=== PATIENT | male | born 1935 | race Caucasian/White ===

== ENCOUNTER 2017-01-10 14:00 | Inpatient (IN) | payer MEDICARE, OTHER ==
[~2017-01-10] VITALS: Ht 152.4 cm; Wt 75.3 kg
--- NOTE | ~2017-01-10 | OR ---
PATIENT'S NAME: EDDY HOOKS [facility] AGE: 81 Y [address] ROOM: [address] [address] LOCATION: GICU ADMIT DATE: 01/10/2017 OR/Procedure Report DISCHARGE DATE: FAMILY PHYSICIAN: SUZY DE SANTIAGO PA-C ATTENDING PHYSICIAN: Joey Lopes SURGEON: Shay Mendoza MD SPIKE MACHINE OPERATOR: DATE OF PROCEDURE: 01/13/2017 PREOPERATIVE DIAGNOSIS: High-grade right internal carotid artery stenosis as well as 3-vessel disease of the heart. PROCEDURE: Combined carotid/CABG. I will be dictating the portion of the carotid surgery. CLAIMS ACCOUNT MANAGER: Doris Alvarez. ESTIMATED BLOOD LOSS: 100 mL. FINDINGS: Flow in all 3 vessels at the end of the case. DESCRIPTION OF PROCEDURE: The patient was brought to the operating room, placed supine on the operating table, placed under general anesthesia, prepped and draped in a sterile manner. Preoperative time-out was performed. The patient had placement of a [place] catheter in the left IJ as well as arterial line in the left wrist. Preop time-out was performed. We made a standard incision along the anterior border of sternocleidomastoid on the right, dissected down, transected the platysma. We dissected out the soft tissue on the anterior border of the sternocleidomastoid muscle. We identified the facial vein, which was ligated and transected. We then dissected out the external, common, internal, and superior thyroid artery. We then gave 5000 units of heparin. We then clamped on all 3 major vessels, placed a clip on the superior thyroid, which was removed at the end of the case. We made an arteriotomy with 11 blade from the common to the internal. We then passed a 5 x 3 Sundt shunt from the common to the internal. Flow was confirmed with the use of Doppler. We then performed a standard endarterectomy, removing the plaque in its entirety. We then meticulously examined the posterior wall of the artery, removing any further debris. We then did a standard 6-0 [place] patch anastomosis using a bovine pericardial patch. Before completing the anastomosis, we clamped and removed the shunt. We allowed for backbleeding from the internal as well as forward bleeding from the common. We completed anastomosis. We then removed the clamp from the external as well as the clamp from the common. We waited 10 heartbeats and then removed the clamp from the internal. Any bleeding areas were repaired PATIENT'S NAME: EDDY HOOKS [facility] AGE: 81 Y [address] ROOM: [place] [address] LOCATION: [facility] ADMIT DATE: 01/10/2017 OR/Procedure Report DISCHARGE DATE: FAMILY PHYSICIAN: SUZY DE SANTIAGO PA-C ATTENDING PHYSICIAN: Joey Lopes with 6-0 Prolene. The wound was then packed with thrombin for hemostasis. The wound was then packed with 2 Ray-Tecs and then covered with a clear sterile dressing. Dr. Appiah at this time entered the case and would continue with the CABG, which he will dictate his portion of the case. MD BROOKLYN WEBBER/rosa isela /[id number] d: 01/13/171952 t: 01/17/17 1145, OPERATIVE SUMMARY
--- NOTE | ~2017-01-10 | PUL ---
PATIENT'S NAME: EDDY HOOKS [facility] AGE: 81 Y [address] ROOM: [address] [place], [place] [address] LOCATION: GPCU ADMIT DATE: 01/10/2017 Pulmonary DISCHARGE DATE: FAMILY PHYSICIAN: SUZY DE SANTIAGO PA-C ATTENDING PHYSICIAN: Joey Lopes NAME OF PROCEDURE: Bedside Spirometry DATE OF PROCEDURE: January 11, 2017 TECH: TBlan, DRAW FRAME RUNNER REASON FOR EXAM: Pre-surgical evaluation RESULTS: FVC was 1.34 liters which is 35% of predicted, FEV1 was 0.96 liters which is 35% of predicted and low, and FEV1/FVC was 71.4% and normal. The flow volume curve did not reveal any significant airflow limitation. However, there was suggestion of restrictive lung disease. PHYSICIAN INTERPRETATION: The patient has no airflow limitation. There is suggestion of restrictive lung disease but lung volumes are needed to confirm that. MD JASON DUQUE/barbie /[id number] dtt: 01/12/17 1322 , LINDSAY HERNANDEZ dtd: 01/12/17 1242
--- NOTE | ~2017-01-10 | CATH ---
Cardiac Diagnostic Report Demographics Patient Name JESSEE Ansari Gender Male Date of 1935 Age 81 year(s) Patient Number [id number] Date of Study 01/11/2017 Visit Number [id number] Room Number G[address] [place] [id number] Ht 175.26 cm Wt 73.94 kg Referring Tory Pratt Primary Physician Physician Performing Marianne Cook MD Secondary Physician Physician Diagnostic Marianne Cook MD Assisting Physician Physician Interventional Physician Crop Pest Control Specialist Physician Findings and Conclusions Diagnostic Findings and Conclusion 3 vessel CAD 1/5 grafts patent Diagnostic Recommendations CT consult for re-do CABG Procedure Description The patient was brought to the diagnostic cardiac catheterization-EP laboratory in the fasting, non-sedated state. Informed consent was obtained in the written and verbal form after the risks and benefits were explained. The patient had no further questions and agreed to proceed. The planned puncture-incision site(s) were shaved and prepped with ChloraPrep and draped in the usual sterile manner. Conscious sedation, supplemental oxygen, and pain control medications were delivered by a registered nurse under physician guidance. Surface ECG rhythm, blood pressure measurement, and pulse oximetry were monitored throughout the procedure. Arterial access. The access site was infiltrated with lidocaine. The vessel was entered with the Seldinger technique. A sheath was advanced into the vessel and used for catheter placement. Selective left coronary angiography. A catheter was advanced into the left coronary vessel ostium under Fluoroscopic guidance. Contrast was injected by hand. Images were obtained in multiple projections. Selective right coronary angiography. A catheter was advanced into the right coronary vessel ostium under fluoroscopic guidance. Contrast was injected by hand. Images were obtained in multiple projections. Selective SVG angiography. A catheter was advanced into the graft proximal anastomosis under fluoroscopic guidance. Contrast was injected by hand. Images were obtained in multiple projections. Left heart catheterization with ventriculography. A catheter was advanced across the aortic valve to the left ventricle under fluoroscopic guidance. Resting hemodynamics were obtained. With the catheter at the left ventricular apex, contrast was injected. Images were obtained in VINICIUS projections. Post-ventriculography LV pressure was obtained. The catheter was gradually withdrawn into the aorta with continuous pressure recording. Arterial artery hemostasis. Hemostasis was achieved. The patient was transferred to a regular nursing floor via cart accompanied by a nurse. The patient left the laboratory in stable condition. Diagnostic Cath Status: Urgent Procedure Procedure Type Diagnostic procedure:Ventriculogram:, Left, Angiography:, Coronary Angios Indications: NSTEMI, Shortness of breath and Angina. The procedure was explained in detail to the patient. Risks, complications and alternative treatments were reviewed. Written consent was obtained. Medications Reviewed with Patient prior to Procedure. Angiographic Findings Dominance: Right Cardiac Arteries and Lesion Findings LMCA: Abnormal.calcified large wnl LAD: Abnormal.mid 85% involving medium diag 1 diag 1 medium competitive flow MCINTOSH-LAD 100% occluded svg-diaf 1 patent, timbi-[place] diag medium ok Lesion on Mid LAD: Mid subsection.85% stenosis . LCx: Abnormal.nondominant diffuse 80% lesions Lesion on Mid CX: Mid subsection.80% stenosis . RCA: Abnormal.heavily calcified mid 75% distal 99% PL mid distal/distal 100% PDA small ok Lesion on Mid RCA: Mid subsection.85% stenosis . Lesion on 1st RPL: Distal subsection.100% stenosis . Lesion on Dist RCA: Distal subsection.100% stenosis . Lesion on 1st RPL: Cardiac Grafts - There is a Vein graft that originates at the Aorta Left and attaches to the 1st Diag. Coronary Tree Procedure Data Procedure Date Date: 01/11/2017Start: 11:20 AMEnd: 11:57 AM Entry Locations - Retrograde Percutaneous access was performed through the Right Femoral artery (Primary location). A 6 Fr sheath was inserted. Hemostasis was successfully obtained using Perclose ProGlide (S[place]). Closure Comments: deployed by kate. Procedure Medications Order and Administration + + + + + !Time !Medication !Dosage !Route ! + + + + + !01/11/2017 11:17 AM !Fentanyl !50 mcg !I.V. ! + + + + + !01/11/2017 11:19 AM !Versed !1 mg !I.V. ! + + + + + !01/11/2017 11:24 AM !Oxygen !4 l/min !NC ! + + + + + !01/11/2017 11:27 AM !Oxygen !6 l/min !Mask ! + + + + + !01/11/2017 11:53 AM !0.45% NaCl !75 ml/hr !I.V. drip ! + + + + + Devices Used - A6 Fr. BS JL 4 Diag. Catheterwas used for:Left coronary angiography. - A6 Fr. BS JR 4 Diag. Catheterwas used for:Right coronary angiography. - A6 Fr. BS IMT Diag. Catheterwas used for:MCINTOSH. - A6 Fr. BS AR Mod Diag. Catheterwas used for:Coronary Angios. - A6 Fr. BS Angled Pigtail Diag. Catheterwas used for:LV Pressures. Contrast Material - Isovue 106424 ml Fluoroscopy Time: Diagnostic: 8:00 minutes. Total: 8:00 minutes. Fluoroscopy Dose: Diagnostic: 1214 mGy. Total: 1214 mGy. Estimated Blood Loss: 3 ml. Medical History Allergies - No known allergies. Risk Factors The patient risk factors include: prior CABG on 11/14/1996;obesity, physical activity, treated hypercholesterolemia, treated hypertension, diabetes mellitus, last creatinine: 1.1 mg/dl, creatinine clearance: 56.01 ml/min, dyslipidemia and prior ID . Admission Data Admission Date: 01/10/2017 Admission Time: 02:28 PM Admit Source: Transfer acute care facility Insurance Payors: Medicare. Admission Medications + +------+------+ + + + + !Medication !Dosage!Times !Last !Last !Administered !Comments ! ! ! !Per !Delivery !Delivery ! ! ! ! ! !Day !Date !Time ! ! ! + +------+------+ + + + + !Aspirin ! ! ! ! ! ! ! !(any) ! ! ! ! ! ! ! + +------+------+ + + + + !Beta Fredis! ! ! ! ! ! ! !(any) ! ! ! ! ! ! ! + +------+------+ + + + + !LLUVIA ! ! ! ! ! ! ! !Inhibitor ! ! ! ! ! ! ! !(any) ! ! ! ! ! ! ! + +------+------+ + + + + !Statin (any)! ! ! ! ! ! ! + +------+------+ + + + + Clinical Evaluation Leading to Procedure - The patient's CAD presentation was assessed as: Non-STEMI. - The patient's anginal syndrome during the past two weeks was assessed as: Class IV according to the [place] Cardiovascular Society Classification System (CCS). Anti-anginal medications were prescribed during the past two weeks. The medications are: Beta Blockers and Other. VA Ventriculography Findings inferior wall mod-severe HK Ef40-45% LV function assessed as:Abnormal. Ejection Fraction - 01/11/2017 - Method: LV gram. EF%: 40. LVA Segment Contractility 1 - Normal 3 - Mild 5 - Severe 7 - Dyskinesis hypokinesis hypokinesis 2 - 4 - Moderate 6 - Akinesis 8 - Aneurysm Hypokinesis hypokinesis Hemodynamics Condition: Rest O2 Consumption: Estimated: 223.62Heart Rate: 81 bpm Pressures (mmHg) +-----+ + !Site !Pressure ! +-----+ + !AO !124/65 (88) ! +-----+ + !LV !117/8 ,19 ! +-----+ + !LV !118/6 ,21 ! +-----+ + !AO !119/60 (86) ! +-----+ + !LV !115/6 ,19 ! +-----+ + !LV !95/4 ,14 ! +-----+ + !LV !99/6 ,16 ! +-----+ + !AO !105/53 (76) ! +-----+ + !LV !100/6 ,16 ! +-----+ + Valve Gradients and Areas + +---------+---------+---------+ +---------+ + !Valve !Peak !Mean !Area !Index !Flow !Source ! + +---------+---------+---------+ +---------+ + !Aortic !0 !0 ! ! ! ! ! + +---------+---------+---------+ +---------+ + !Aortic !0 !0 ! ! ! ! ! + +---------+---------+---------+ +---------+ + Shunts Oxygen Values O2 Capacity 209.44 O2 Consumption 223.62 Signatures dtt: Joey Lopes (cardio) dtd: 01/11/17 1120 Physician Self Edit
--- NOTE | ~2017-01-10 | CON ---
PATIENT'S NAME: EDDY HOOKS [facility] AGE: 81 Y [address] ROOM: [place] [address] LOCATION: GICU ADMIT DATE: 01/10/2017 Consultation DISCHARGE DATE: FAMILY PHYSICIAN: SUZY DE SANTIAGO PA-C ATTENDING PHYSICIAN: Joey Lopes DATE OF CONSULTATION: 01/12/2017 REFERRING PHYSICIAN: Holger Appiah DO REASON FOR CONSULT: Right internal carotid artery high-grade stenosis. HISTORY OF PRESENTING ILLNESS: This is an 81-year-old male admitted to [facility] for a non-STEMI after experiencing left-sided chest pain and diminished appetite for 4 days. He presented to his primary care clinic and found to have an elevated troponin of 3.1. The patient was transferred to [facility], underwent cardiac heart catheterization with Dr. Lopes on January 11, 2017, and it was determined that the patient would need coronary artery bypass grafting. During the preoperative workup, carotid duplex revealed high- grade stenosis of the right internal carotid artery with velocities of 300/117. The patient denies any speech changes, vision changes, or changes in extremity strength. The patient has a known history of coronary artery disease with a 5-vessel CABG in 1996. He denies any history of nicotine use. The patient is a known type 2 diabetic. He denies any claudication or edema. He denies any chest pain, shortness of breath, dizziness, lightheadedness, nausea, vomiting, diarrhea, or abdominal pain at this time. PAST MEDICAL HISTORY: 1. Diabetes mellitus, type 2. 2. Coronary artery disease, postop coronary artery bypass grafting. 3. Hypertension. 4. Hyperlipidemia. 5. Elizabeth's lung. PAST SURGICAL HISTORY: 1. Appendectomy. 2. Cholecystectomy. 3. Coronary artery bypass grafting in 1996. 4. Right inguinal hernia repair. 5. Bilateral cataracts. 6. 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 FAMILY HISTORY: Father with Alzheimer's, and mother with hypertension. PATIENT'S NAME: EDDY HOOKS [facility] AGE: 81 Y [address] ROOM: [place] [address] LOCATION: GICU ADMIT DATE: 01/10/2017 Consultation DISCHARGE DATE: FAMILY PHYSICIAN: SUZY DE SANTIAGO PA-C ATTENDING PHYSICIAN: Joey Lopes SOCIAL HISTORY: The patient denies any history of smoking. He denies any alcohol or illicit drug use. CURRENT MEDICATIONS: See medication records. ALLERGIES: NO KNOWN ALLERGIES. REVIEW OF SYSTEMS: Ten-point review of systems completed, positives addressed in the History of Presenting Illness. PHYSICAL EXAMINATION: VITAL SIGNS: Temperature 98.3, heart rate 80, respiratory rate 18, blood pressure 135/78, and oxygen saturation is 93%. GENERAL: The patient is in no acute distress. He is alert and oriented x3. SKIN: Warm, pink, and dry without rashes. HEENT: Head: Normocephalic and atraumatic. Ears: Without drainage. Eyes: Sclerae are white and conjunctivae pink. Extraocular movements intact. PERRLA. Nose: Without drainage. Throat: Oral mucosa pink and moist. No exudate or erythema. NECK: Without adenopathy. No evidence of JVD. There is quiet carotid bruit to the right side. Trachea midline. RESPIRATORY: Clear to auscultation bilaterally. Even and unlabored. CARDIOVASCULAR: Regular rate and rhythm. No murmur or extra sounds. GASTROINTESTINAL: Bowel sounds active x4. Soft and nontender. No organomegaly. EXTREMITIES: Femoral and radial pulse 2+. Dorsalis pedis and posterior tibialis 1+. No cyanosis. No edema. Active range of motion throughout. No ulcerations. Extremities are warm to touch. NEUROLOGICAL: No focal deficits. Strength is equal bilaterally at 5/5. LABORATORY DATA: Chemistry: Sodium 136, potassium 3.9, chloride 105, CO2 of 21, BUN 15, creatinine 1.1, and glucose 184. Hematology: White blood cell count 6.9, hemoglobin 15.5, hematocrit 45.6, and platelets 185. IMPRESSION AND PLAN: 1. High-grade right internal carotid artery stenosis. Carotid duplex with elevated velocities estimating an 80% to 99% blockage. CTA obtained, and results are consistent with carotid duplex. The patient is currently asymptomatic and neurologically intact. The patient will need a right PATIENT'S NAME: EDDY HOOKS [facility] AGE: 81 Y [address] ROOM: [place] [address] LOCATION: [facility] ADMIT DATE: 01/10/2017 Consultation DISCHARGE DATE: FAMILY PHYSICIAN: SUZY DE SANTIAGO PA-C ATTENDING PHYSICIAN: Joey Lopes carotid endarterectomy with Dr. Bradley. Dr. Bradley did discuss risks and benefits with the patient. Plan surgical intervention tomorrow prior to coronary artery bypass grafting with Dr. Appiah. The patient is currently on aspirin and Lipitor. 2. Coronary artery disease. The patient is status post coronary artery bypass grafting in 1996. He has had recent chest pain and shortness of breath with activity and elevated troponin. Heart cath completed on 01/11/2017, and plan for CABG tomorrow with Dr. Appiah. 3. Diabetes mellitus, type 2. The patient is on Levemir, NovoLog, and Accu- Cheks. 4. Hyperlipidemia. The patient is on Lipitor. Thank you for your consultation and for allowing us to participate in the care of this patient. SIMÓN TRUONG APRN FOR BETTY BRADLEY MD TO/rosa isela /[id number] d: 01/12/17 1730 t: 01/28/17 1813, CONSULTATION REPORT
--- NOTE | ~2017-01-10 | OR ---
PATIENT'S NAME: EDDY HOOKS [facility] AGE: 82 Y [address] ROOM: [address] [address] LOCATION: GPCU ADMIT DATE: 01/10/2017 OR/Procedure Report DISCHARGE DATE: 01/27/2017 FAMILY PHYSICIAN: Terence Spears PA-C ATTENDING PHYSICIAN: Andrea Manzanares SURGEON: Andrea Manzanares DO ENVIRONMENTAL MAINTENANCE WORKER: DATE OF PROCEDURE: 01/14/2017 PREOPERATIVE DIAGNOSIS: No further need for intra-aortic balloon pump. POSTOPERATIVE DIAGNOSIS: No further need for intra-aortic balloon pump. PROCEDURES PERFORMED: Removal of right femoral artery intra-aortic balloon pump and placement of FemoStop device. BRIEF HISTORY: Mr. Hooks is postoperative day #1 from his coronary artery bypass grafting. He has weaned from his balloon pump without difficulties, and it is ready for its removal. DESCRIPTION OF PROCEDURE: The FemoStop device was placed over the access site of the femoral artery, and the intra-aortic balloon pump along with its sheath was removed without difficulty. The FemoStop was applied at a pressure of 70. Distal pulses were intact. No bleeding was appreciated. No surrounding hematoma was encountered. The FemoStop will be weaned as ordered. The patient tolerated the procedure well. ANDREA MANZANARES DO MCB/modl /[id number] d: 02/15/172036 t: 02/16/17 1052, OPERATIVE SUMMARY
--- NOTE | ~2017-01-10 | ENPV ---
Vascular Lower Extremity Vein Mapping Procedure Demographics Patient Name EDDY HOOKS Date of Study 01/11/2017 Patient Number [id number] Gender Male Date of 1935 Age 81 Visit Number [id number] Height 69 Accession Number [id number] Weight 163 Referring Bijal Santana Interpreting Reji Day MD Physician DO Physician Tory Pratt Physician Ordering Physician Bijal Santana Hand Laminator DO Vehicle Window Tinter Yo Espinoza Jana Conclusions Summary Unable to visualize the right greater saphenous vein at the origin due to recent heart cath access in groin and the left greater saphenous vein at the proximal thigh. Right greater saphenous vein appears favorable to the left greater saphenous vein. Procedure Type of Study: Veins:Lower Extremity Vein Mapping, Vein Map Bilat PARVIN. Indications for Study:Pre-op CABG. Appropriate Use Criteria:6 Allergies - No known allergies. Patient Status:Routine. Study Location:Inpatient Portable. Technical Quality:Adequate visualization. Risk Factors - The patient's risk factor(s) include: diabetes mellitus, dyslipidemia, obesity, lack of physical activity, treated arterial hypertension, prior [place] and prior CABG. - The patient's last creatinine was 1.1 mg/dl. Velocities are measured in cm/s ; Diameters are measured in cm + ++--------++--------+ !Superficial - Great Saphenous Vein !!Right !!Left ! + ++--------++--------+ !Location !!Diameter!!Diameter! + ++--------++--------+ !Sapheno Femoral Junction !! !!0.56 ! + ++--------++--------+ !GSV High Thigh !!0.42 !! ! + ++--------++--------+ !GSV Mid Thigh !!0.27 !!0.24 ! + ++--------++--------+ !GSV Low Thigh !!0.21 !!0.18 ! + ++--------++--------+ !GSV Knee !!0.22 !!0.22 ! + ++--------++--------+ !GSV High Calf !!0.21 !!0.2 ! + ++--------++--------+ !GSV Mid Calf !!0.29 !!0.16 ! + ++--------++--------+ !GSV Low Calf !!0.27 !!0.21 ! + ++--------++--------+ Signature dtt: BETTY BRADLEY dtd: 01/11/17 1453 Physician Self Edit
--- NOTE | ~2017-01-10 | DS ---
PATIENT'S NAME: EDDY HOOKS [facility] AGE: 82 Y [address] ROOM: [id number] [place], [place] [address] LOCATION: GPCU ADMIT DATE: 01/10/2017 Discharge Summary DISCHARGE DATE: 01/27/2017 FAMILY PHYSICIAN: Terence Spears PA-C ATTENDING PHYSICIAN: Joey Lopes [facility] COURSE: The patient is an 82-year-old white male, admitted with a non-STEMI. The patient had a known history of coronary artery disease and has previously undergone coronary artery bypass grafting x5 vessels 20 years ago. The patient follows with Dr. Lopes. He was admitted and underwent cardiac catheterization, revealing that 4 of his 5 grafts were down. He consented to a re-operative CABG procedure. During the workup, he was found to have a high- grade right internal carotid stenosis. Dr. Mendoza saw the patient in consultation for a right carotid endarterectomy. In addition, the patient was being seen by Hospitalist Services, who provided overall medical care including management of patient's diabetes. On 2016, the patient presented to the operative suite, whereby Dr. Mendoza proceeded first with a right carotid endarterectomy, followed by Dr. Appiah performed a reoperative sternotomy with saphenous vein graft bypasses to the LAD, ramus, obtuse marginal, and PDA. Following the surgery, the patient began having postoperative cardiomyopathy with ventricular arrhythmias. He therefore underwent a re-operative sternotomy right away with mediastinal exploration and correction of coagulopathy and evacuation of the clot. He was found to have a clot in the mediastinal area and a kinked vein graft. This was corrected, however, intra-aortic balloon pump was placed by Dr. Appiah during the re-operative procedure. The patient did receive several units of cryoprecipitate, and platelets, and packed red blood cells. He stabilized and transferred to the ICU postoperatively where he remained intubated and with the intraaortic balloon pump in place. He was started on Levophed and epinephrine. On postoperative day 1, the intraaortic balloon pump was discontinued. The patient was extubated without difficulty. The patient did exhibit significant weakness postoperatively. Also some cognitive concerns. Eventually, the Levophed and epinephrine were weaned off. The patient was followed by PT, OT, as well as Speech Therapy. Overall, his lines and drips were discontinued, and he was transferred to the progressive care floor. While on progressive care, he was noted to have a purple left second toe. Vascular Surgery did see the patient with regard to this. He likely had an embolic shower to that foot. He did have ABIs and arterial duplex study, which did return negative. He was started on Eliquis, however. Over the next several days, the patient was diuresed for increased fluid overload secondary to the surgical procedure. He was followed by the Surgical Team as well as Hospitalist Services. His chest tube put out large quantities of output for several days, and therefore, it was maintained. His pacemaking wires and Barrett catheter were discontinued when appropriate. The patient did PATIENT'S NAME: EDDY HOOKS [facility] AGE: 82 Y [address] ROOM: [place] [address] LOCATION: GPCU ADMIT DATE: 01/10/2017 Discharge Summary DISCHARGE DATE: 01/27/2017 FAMILY PHYSICIAN: Terence Spears PA-C ATTENDING PHYSICIAN: Joey Lopes undergo a CT of the head as he did exhibit some mental status changes, perhaps the best way to explain it that he was stable but very lethargic. He slept so soundly and was unresponsive at times. Neurology was asked to see the patient. The CT did not reflect anything of significance. Neurology felt that it was likely encephalopathy. The patient did have an MRI, that did show tiny acute versus subacute ischemic infarcts. Given this, Neurology did recommend that the patient be monitored from a cardiac standpoint once he is discharged for a period of time. The patient did not have any atrial fibrillation throughout this hospital stay, but Cardiology did plan for ZIO patch placement upon the patient's discharge. We did keep him on Eliquis, aspirin, and statins. Eventually, his chest tube was discontinued. The care management team worked with the patient and his with regard to discharge options. The patient and preferred [facility]. Arrangements were made. The patient's primary care provider, Dr. Nguyen was contacted and did accept the patient in transfer when the patient is stable to proceed. By 01/21/2017, the patient was found stable for discharge. Dr. Nguyen was contacted and updated on the patient's status, and the patient was transferred to the [facility] bed. ADMISSION DIAGNOSIS: To the [facility] bed includes: 1. Deconditioning secondary to redo-sternotomy for coronary artery bypass grafting x5 vessels on 01/13/2017. SECONDARY DIAGNOSES: 1. Coronary artery disease/acute myocardial infarction. 2. Peripheral vascular disease with a right carotid endarterectomy on 01/13/2017. 3. Hypertension. 4. Diabetes mellitus type 2. 5. Dyslipidemia. 6. Osteoarthritis. 7. Acute encephalopathy. 8. Acute versus ischemic brain infarcts. DISCHARGE INSTRUCTIONS: Followup Appointments with Dr. Lopes and Dr. Appiah were made for 2 weeks. Arrangements were made for the patient to have a ZIO patch to be placed on the patient's chest in [place] at the group home [facility] and will be monitored by Dr. Lopes. The patient is to follow a diabetic diet of regular texture. The patient is full weightbearing status with strict sternal precautions until February 17, 2017. Therapies include PT, OT. The patient may shower. He is to wear MAXIMILIANO hose on in a.m. and off in the p.m. Sutures are to be removed from the right graft leg, at the knee, ankle, and groin area on January 31, 2017. The patient has no dressings that required to be changed. PATIENT'S NAME: EDDY HOOKS [facility] AGE: 82 Y [address] ROOM: [address] [address] LOCATION: GPCU ADMIT DATE: 01/10/2017 Discharge Summary DISCHARGE DATE: 01/27/2017 FAMILY PHYSICIAN: Terence Spears PA-C ATTENDING PHYSICIAN: Joey Lopes DISCHARGE MEDICATIONS: 1. Eliquis 2.5 mg p.o. b.i.d. 2. Aspirin 81 mg daily. 3. Lipitor 10 mg at h.s. 4. Bumex 1 mg daily. 5. Coreg 3.125 mg daily. 6. Questran 4 g p.o. daily. 7. Pepcid 20 mg daily. 8. Feosol 325 mg daily. 9. NovoLog per carb count subcu 3 times a day with carb count being 2 units per 15 g of carbs. 10. NovoLog sliding scale per mild scale. 11. Levemir 20 units subcu at h.s. 12. Multivitamin daily. 13. Potassium chloride 20 mEq twice a day. 14. Albuterol 2 puffs per inhalation 4 times a day. 15. Tylenol 325 mg q.4 hours p.r.n. mild pain or temp. 16. Tylenol 500 mg to 1000 mg q.6 hours p.r.n. pain. 17. Dulcolax suppository 10 mg p.r.n. constipation. 18. Milk of magnesia 30 mL p.r.n. constipation. 19. Zofran 4 mg p.o. q.6 hours p.r.n. 20. Albuterol 2 puffs per inhalation q.4 hours p.r.n. The patient and verbalized understanding of the discharge orders. The patient transferred to the [facility] bed in stable condition. MAXIMILIANO ROGEL APRN FOR DO PABLO BALLARD/modl /[id number] d: 02/10/17 0343 t: 02/10/17 1722, DISCHARGE SUMMARY
--- NOTE | ~2017-01-10 | OR ---
PATIENT'S NAME: EDDY SHEPARD [facility] AGE: 82 Y [address] ROOM: [address] [address] LOCATION: GPCU ADMIT DATE: 01/10/2017 OR/Procedure Report DISCHARGE DATE: 01/27/2017 FAMILY PHYSICIAN: Terence Spears PA-C ATTENDING PHYSICIAN: Joey Lopes SURGEON: Holger Appiah DO MOTOR SCOOTER REPAIRER: DATE OF PROCEDURE: 01/13/2017 PREOPERATIVE DIAGNOSES: 1. Bilateral pleural effusions. 2. Right carotid artery stenosis. 3. Recurrent coronary artery disease status post history of CABG x5 in 1996. 4. Nkv-WO-jozkvbn elevation myocardial infarction. 5. Diabetes mellitus. POSTOPERATIVE DIAGNOSES: 1. Bilateral pleural effusions. 2. Right carotid artery stenosis. 3. Recurrent coronary artery disease status post history of CABG x5 in 1996. 4. Yiq-DU-xvdcwkt elevation myocardial infarction. 5. Diabetes mellitus. PROCEDURES: 1. Insertion of bilateral 24-Bahamian Darryl drain chest tubes. 2. Reoperative sternotomy. 3. Cardiolysis. 4. Coronary artery bypass grafting x4 with reverse saphenous vein graft to the left anterior descending artery, sequential to the ramus intermedius artery, reverse saphenous vein graft to the obtuse marginal artery, reverse saphenous vein graft to the posterior descending artery. 5. Management of coagulopathy. BRIEF HISTORY: Mr. Shepard is an 81-year-old white male with the above-noted diagnosis. He has been brought to the operative suite today after informed consent was obtained. He is scheduled for a combination case of the right carotid endarterectomy and then reoperative coronary artery bypass grafting. Dr. Mendoza is to perform a carotid endarterectomy, please see his operative note for specific details. Prior to his endarterectomy, however, the patient was intubated and found to have decreasing saturations. We knew him to have bilateral pleural effusions, therefore, under fluoroscopic guidance, we placed bilateral 24-Bahamian chest tubes. We started on the right. An incision was created and dissection was carried out to the pleural space. The intercostal space was entered bluntly and chest tube was placed under fluoroscopic guidance into the costophrenic angle. The chest tube was secured to the chest PATIENT'S NAME: EDDY SHEPARD [facility] AGE: 82 Y [address] ROOM: [address] [place] [id number] LOCATION: GPCU ADMIT DATE: 01/10/2017 OR/Procedure Report DISCHARGE DATE: 01/27/2017 FAMILY PHYSICIAN: Terence Spears PA-C ATTENDING PHYSICIAN: Joey Lopes connected to suction. Similar procedure was performed on the left. Dr. Mendoza then performed his endarterectomy without difficulty. We then came to the operative suite, performed our sternal incision, and dissection was carried down to the previous sternal wires. The sternal wires were removed. Reoperative saw was used to divide the sternum without injury to the retrosternal structures. Further careful dissection was carried out to free the sternum. Sternal retractor was placed. Concurrently to this, a saphenous vein was harvested endoscopically from the lower extremity. The heart and the lungs were then freed and cardiolysis was performed. The vein was then prepared for bypass. Heparin was given. Cannulation sutures placed in the ascending aorta and right atrium for bypass cardioplegia cannulas and the patient was cannulated and connected to the bypass pump without difficulty. Cardiopulmonary bypass was initiated and the remainder of the cardiolysis was performed to the posterior surface of the heart. The cross-clamp was then applied. Antegrade and retrograde cardioplegia along with topical cold saline was used to cardiac arrest and the heart arrested without difficulty. The sternum with our posterior descending artery. It was opened beyond the previous bypass and an end-to-side vein graft anastomosed to this with 7-0 Prolene. It was then sized appropriately and connected to the cardioplegia system. Another 500 mL of vein graft and retrograde cardioplegia was given. This was done after each venous distal anastomosis. A similar venous distal anastomosis was then created to the obtuse marginal and then one to the LAD. We then sequenced this to the ramus intermedius artery. Once this was completed, the crossclamp was removed and a partial occlusion clamp applied. Warm blood was now given via the vein grafts and the retrograde cannula. We formed our 3 proximal anastomosis to the ascending aorta utilizing a 4-0 punch and 6-0 Prolene. With these completed, the partial occlusion clamp was removed. Bulldogs were removed and distal flow was given. Copious amounts of antibiotic-infused saline was used to irrigate the sternum and mediastinum. Four chest tubes were placed, one left pleural, one right pleural, one posterior pericardial, one anterior mediastinal. The sternum was then approximated with ZIPFIX system. Soft tissues irrigated again and closed in a layered fashion. All sponge, instrument, and needle counts were correct. Appropriate products were given for his coagulopathy and the patient was transferred in stable condition to the intensive care unit. DO JENNIFER BALLARD/rosa isela /[id number] d: 02/15/172000 t: 02/16/17 1046, OPERATIVE SUMMARY
--- NOTE | ~2017-01-10 | OR ---
PATIENT'S NAME: EDDY SHEPARD [facility] AGE: 82 Y [address] ROOM: [place] [address] LOCATION: GPCU ADMIT DATE: 01/10/2017 OR/Procedure Report DISCHARGE DATE: 01/27/2017 FAMILY PHYSICIAN: Terence Spears PA-C ATTENDING PHYSICIAN: Joey Lopes SURGEON: Holger Appiah DO FIRE BATTALION CHIEF: DATE OF PROCEDURE: 01/13/2017 PREOPERATIVE DIAGNOSIS: Postoperative coagulopathy with mediastinal bleeding causing ventricular arrhythmias. POSTOPERATIVE DIAGNOSIS: Postoperative coagulopathy with mediastinal bleeding causing ventricular arrhythmias plus mediastinal clot and kinking of vein graft. PROCEDURES: Reoperative sternotomy with mediastinal exploration, correction of coagulopathy, and evacuation of clot. BRIEF HISTORY: Mr. Shepard has undergone reoperative sternotomy and coronary artery bypass grafting x4 this afternoon. This evening, he developed some mediastinal bleeding. He has had several episodes of ventricular arrhythmias and I am concerned that a clot is kinking one of our vein grafts. Therefore, he has been brought back to the operative suite for evaluation. His previous sternal incision was opened. Suture material was removed. ZIPFIX system was removed and a sternal retractor was placed. A fair amount of clot was noted in the pericardial space and at the sequential site of the ramus intermedius graft. The clot was pushing up on each side of the graft causing kinking, this was evacuated and the graft laid nicely. No further ventricular arrhythmias were appreciated. Copious amounts of antibiotic-infused saline was used to irrigate the sternum mediastinum. CADENCE indicated coagulopathy and appropriate products were infused. The sternum was reapproximated with ZIPFIX system and then soft tissue closed in layered fashion. The patient tolerated the procedure well, was returned to the intensive care unit in stable condition. DO JENNIFER BALLARD/rosa isela /[id number] d: 02/15/175 t: 02/16/17 1044, OPERATIVE SUMMARY
--- NOTE | ~2017-01-10 | ECHO ---
Transthoracic Echocardiography Report (TTE) Demographics Patient Name EDDY HOOKS Date of Study 01/10/2017 Patient Number [id number] Visit Number [id number] Date of 1935 Room Number G6323 Accession Number [id number] Gender Male Age 81 year(s) Referring Marianne Cook MD Print Color Matcher Peyman Anthony Physician Tory Dang [facility], RVT Physician Interpreting Marianne Cook MD Computer Tech Physician Supervising Ordering Physician Marianne Cook MD, MD/MLP Nurse Stress Galvanizer Zinc Conclusions Contractility Score Summary At rest the following contractility abnormalities were noted: Hypokinesis of the Mid infero-septal, the Mid inferior, the Apical inferior, the Apical septal and the Apical lateral segments; Akinesis of the Mid infero-lateral, the Basal infero-lateral, the Basal infero-septal and the Basal inferior segments. Contractility of all other segments appeared normal. Summary The estimated left ventricular ejection fraction is 45%. Mild concentric left ventricular hypertrophy. Diastolic assessment reveals Grade III restrictive diastolic dysfunction. Moderately reduced right ventricular function. The left atrium is severely dilated by LA volume index measurement. There is moderate pulmonary hypertension. The pulmonary pressure (RVSP) is 45.7 mmHg. Small posterior pericardial effusion. The aortic root appears mildly dilated. The maximum diameter measures 3.8 cm. Pleural effusion present. Procedure Type of Study TTE procedure:2D Echocardiogram. Procedure Date Date: 01/10/2017 Start: 03:55 PM Study Location: Inpatient Portable Technical Quality: Adequate visualization Indications:Chest pain. Appropriate Use Criteria: 9 Patient Status: STAT HR: 74 bpm BP: 130/72 mmHg Allergies - No known allergies. M-Mode/2D Measurements LV Diastolic Dimension: 5.34 cm LV Systolic Dimension: 3.78 cm LV Septum Diastolic: 1.11 cm LV PW Diastolic: 1.04 cm AO Root Dimension: 3.8 cm Cardiac Output: 2.39 l/min AV Cusp Separation: 1.8 cm RV Diastolic Dimension: 2.25 cm LA volume: 101 ml EF Estimated: 45 % LVOT: 1.8 cm LVOT VTI: 12.7 cm RV Base: 2.86 cm LV Stroke volume: 32.3 ml RV Length: 6.39 cm TAPSE: 1.43 cm TDI-S': 8.77 cm/s Doppler Measurements AV Peak Velocity: 0.78 m/s MV Peak E-Wave: 1.37 m/s AV Peak Gradient: 2.4 mmHg MV Peak A-Wave: 0.45 m/s AV Mean Gradient: 2 mmHg MV E/A Ratio: 3.02 LVOT Peak Velocity: 0.66 m/s MV P1/2t: 60 msec TR Gradient:40.7 mmHg PV Peak Velocity: 0.53 m/s Estimated RAP:5 mmHg PV Peak Gradient: 1.14 mmHg Estimated RVSP: 46 mmHg Estimated PASP: 45.7 mmHg E' Septal Velocity: 0.02 m/s A' Septal Velocity: 0.04 m/s E' Lateral Velocity: 0.02 m/s A' Lateral Velocity: 0.03 m/s Findings Left Ventricle Mild concentric left ventricular hypertrophy. Diastolic assessment reveals Grade III restrictive diastolic dysfunction. Right Ventricle Moderately reduced right ventricular function. Left Atrium Normal left atrial size. Right Atrium Normal right atrial size. Mitral Valve Mild mitral regurgitation by color Doppler. Mild mitral annular calcification. Aortic Valve The aortic valve is mildly sclerotic. Tricuspid Valve Moderate tricuspid regurgitation by color Doppler. There is moderate pulmonary hypertension. The pulmonary pressure (RVSP) is 45.7 mmHg. Pulmonic Valve Mild pulmonic valve regurgitation by color Doppler. Pericardial Effusion No evidence of pericardial effusion. Miscellaneous The aortic root appears mildly dilated. The maximum diameter measures 3.8 cm. Pleural Effusion Pleural effusion present. Contractility Score LV regional wall motion:(0-Non visualized 1-Normal 2-Hypokinesis 3-Akinesis 4-Dyskinesis 5-Aneurysm) Signature dtt: Joey Lopes (cardio) dtd: 01/10/17 1555 Physician Self Edit
--- NOTE | ~2017-01-10 | ENPV ---
Vascular Lower Extremities Arterial Duplex and Lower Arterial Plethysmography Procedure Demographics Patient Name EDDY HOOKS Date of Study 01/17/2017 Patient Number [id number] Gender Male Date of 1935 Age 81 Visit Number [id number] Height 69 Accession Number [id number] Weight 163 Referring Marianne Cook MD Interpreting Reji Day MD Physician Gabe Ansari Physician BEBETO Pratt Physician Ordering Physician Gabe Ansari [facility] BEBETO Creel Operator Buddy Patterson [facility] Conclusions Summary Duplex imaging of the right leg reveals no significant peripheral arterial disease . Duplex imaging of the left leg reveals no significant peripheral arterial disease . Ankle brachial index on the right is 1.22 no significant arterial disease at rest. Ankle brachial index on the left is 1.33 no significant arterial disease at rest. Procedure Type of Study: Extremities Arteries:Lower Extremities Arterial Duplex, Arterial Duplex Lower Extremity Bilateral, Lower Arterial Plethysmography, Ankle/Brachial Indicies. Indications for Study:Reduced/Absent pulses. Appropriate Use Criteria:9 Allergies - No known allergies. Patient Status:Routine. Study Location:Inpatient Portable. Technical Quality:Adequate visualization. Risk Factors - The patient's risk factor(s) include: diabetes mellitus, dyslipidemia, obesity, lack of physical activity, treated arterial hypertension, prior KS and prior CABG. - The patient's last creatinine was 1.1 mg/dl. Velocities are measured in cm/s ; Diameters are measured in cm Pressures + +----+ +---------+--------+ + + ! ! !Right ! !Left ! ! ! + +----+ +---------+--------+ + + !Location ! !Pressure !Ratio ! !Pressure !Ratio ! + +----+ +---------+--------+ + + !Ankle PT ! !137 !1.22 ! !149 !1.33 ! + +----+ +---------+--------+ + + !DP ! !121 !1.08 ! !137 !1.22 ! + +----+ +---------+--------+ + + - Brachial Pressure:Right: 112.Left:108. - SANJEEV:Right: 1.22.Left: 1.33. Velocities are measured in cm/s ; Diameters are measured in cm LE Duplex Measurements + ++-----+ +----+---+ + ! !!Right! !Left! ! ! + ++-----+ +----+---+ + !Location !!PSV !Wave Desc. ! !PSV!Wave Desc. ! + ++-----+ +----+---+ + !Femoral !!66 !Triphasic ! !51 !Triphasic ! + ++-----+ +----+---+ + !PFA !!57 !Biphasic ! !30 !Biphasic ! + ++-----+ +----+---+ + !Prox SFA !!60 !Biphasic ! !68 !Triphasic ! + ++-----+ +----+---+ + !Mid SFA !!60 !Triphasic ! !70 !Triphasic ! + ++-----+ +----+---+ + !Dist SFA !!67 !Triphasic ! !63 !Triphasic ! + ++-----+ +----+---+ + !Prox Popliteal !!40 !Triphasic ! !105!Triphasic ! + ++-----+ +----+---+ + !Dist Popliteal !!60 !Triphasic ! !60 !Triphasic ! + ++-----+ +----+---+ + !Mid FIBERGLASS BOAT MAKER !!59 !Triphasic ! !78 !Triphasic ! + ++-----+ +----+---+ + !DP !!60 !Biphasic ! !46 !Biphasic ! + ++-----+ +----+---+ + Signature dtt: BETTY BRADLEY dtd: 01/17/17 1336 Physician Self Edit
--- NOTE | ~2017-01-10 | CON ---
PATIENT'S NAME: EDDY HOOKS [facility] AGE: 81 Y [address] ROOM: [id number] [place], [place] [address] LOCATION: GPCU ADMIT DATE: 01/10/2017 Consultation DISCHARGE DATE: FAMILY PHYSICIAN: SUZY DE SANTIAGO PA-C ATTENDING PHYSICIAN: Joey Lopes DATE OF CONSULTATION: 01/11/2017 REFERRING PHYSICIAN: Holger Manzanares DO REASON FOR CONSULTATION: Acute LA/multivessel coronary artery disease. 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 He was transferred here from [place] after he had presented to their clinic with complaints of shortness of breath, anorexia, and new-onset chest pain. The patient had been experiencing the intermittent shortness of breath for 4 to 5 days prior to the admission as well as the symptoms of anorexia; however, the chest pain did not occur until the patient slipped from his vehicle, caught himself, and gulped in a bunch of cold air. The chest pain then ensued. He thought that the discomfort was secondary to the breathing in of the cold air; however, he was taken to the [facility] and evaluated. His troponins were elevated at 3.1. He had a negative CT scan of the chest for pulmonary emboli. He was ruled as a non- STEMI and transferred under the care of insulation board calender operator, Dr. Lopes. The patient does have a history of having had a 5-vessel coronary artery bypass grafting surgery back in 1996 at [facility]. The bypasses include a left internal mammary artery to the left anterior descending, a right internal mammary artery to the posterior descending, and a triple sequential graft that was used from the left forearm to bypass the diagonal, the obtuse marginal branch, and the posterolateral branch of the circumflex. The patient went down with Dr. Lopes for cardiac catheterization today. Four of the five bypassed vessels are now down. The patient will require surgical revascularization. Dr. Lopes has asked Dr. Manzanares to see the patient in consultation for surgical revascularization, redo sternotomy. In addition, the patient underwent an echocardiogram with findings of an ejection fraction at 45%. Bilateral pleural effusions are noted. There are no significant valvular abnormalities identified. PAST MEDICAL HISTORY: ILLNESSES: Diabetes mellitus, coronary artery disease, hypertension, dyslipidemia, and osteoarthritis. PATIENT'S NAME: EDDY HOOKS [facility] AGE: 81 Y [address] ROOM: [id number] [place], [place] [address] [facility]: [facility] ADMIT DATE: 01/10/2017 Consultation DISCHARGE DATE: FAMILY PHYSICIAN: SUZY DE SANTIAGO PA-C ATTENDING PHYSICIAN: Joey Lopes SURGERIES/PROCEDURES: Coronary artery bypass grafting x5 vessels 20 years ago, cholecystectomy, right inguinal hernia repair, bilateral cataract surgeries, colonoscopy, amputation of 2 left toes, and traumatic amputation of left ring finger. ALLERGIES: NO KNOWN DRUG ALLERGIES. SOCIAL HISTORY: The patient is . He and his have a ranch in [place], [place]. 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 He is a nonsmoker and a non-alcohol consumer. FAMILY HISTORY: His father from complications of Alzheimer's. His mother from unknown causes. MEDICATIONS: 1. Tylenol Arthritis 650 mg daily. 2. Aspirin 81 mg daily. 3. Tenormin 100 mg b.i.d. 4. Lipitor 10 mg a day. 5. Cholestyramine powder 4 g daily. 6. Vasotec 2.5 mg daily. 7. Fish oil 1200 mg daily. 8. Glucophage 500 mg daily in the a.m. 9. Glucophage 250 mg at h.s. 10. Multivitamin. REVIEW OF SYSTEMS: GENERAL: The patient has experienced some anorexia. No significant weight loss. No fever, chills, or sweats. Prior to the event, there has been no excessive fatigue. HEENT: The patient does wear glasses as he does have age-related vision changes. He denies any hearing complications. He has dentures, upper and lower. RESPIRATORY: He has been experiencing some shortness of breath at times, mostly with activity. 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 No intermittent claudication. No complaints of lower extremity edema. GASTROINTESTINAL: No persistent nausea, vomiting, or constipation. The patient takes cholestyramine secondary to diarrhea that has been ongoing since his gallbladder removal. PATIENT'S NAME: EDDY HOOKS [facility] AGE: 81 Y [address] ROOM: [address] [place], [place] [address] LOCATION: GPCU ADMIT DATE: 01/10/2017 Consultation DISCHARGE DATE: FAMILY PHYSICIAN: SUZY DE SANTIAGO PA-C ATTENDING PHYSICIAN: Joey Lopes MUSCULOSKELETAL: Generalized arthritic aches and pains. He does not require ambulatory devices to perform his work chores. NEUROLOGIC: No frequent or severe headaches. No history of seizures, memory loss, or syncope. ENDOCRINE: Does have a history with diabetes and takes oral medications and insulin, and it is verbalized to be in good control. No history of thyroid conditions. INTEGUMENT: No known skin diseases. PHYSICAL EXAMINATION: VITAL SIGNS: Blood pressure 132/82, pulse is 76, respirations 31, temperature 97.8, and O2 saturation is 98% on 3 L. Weight is 74.8 kg and height is 175.26. GENERAL: The patient is pleasant. He has just returned from the catheterization lab. He is somewhat groggy. He is in no acute distress. He is not having any chest pain or discomfort. HEENT: Normocephalic with EOMIs intact and conjunctivae clear. NECK: No palpable lymphadenopathy or thyromegaly. LUNGS: Clear uppers, diminished bilateral lowers. CARDIOVASCULAR: He does have a right bruit, and his heart is regular. ABDOMEN: Soft and nontender x4 quadrants with positive bowel sounds throughout. EXTREMITIES: No edema or varicosities. NEUROLOGIC: Alert. SKIN: No suspicious skin lesions. LABORATORY AND TEST RESULTS: The CT scan of the chest done in [facility] shows some slight sternal adhesions. It was negative for PE. His creatinine had been elevated on his [facility] labs. At this time, his GFR is greater than 60, BUN 19, and creatinine 1.1. IMPRESSION: 1. Non-ST elevation myocardial infarction, status post cardiac catheterization. Currently, without chest pain. 2. Multivessel coronary artery disease. 3. Diabetes mellitus. 4. Hypertension. RECOMMENDATION AND PLAN: Dr. Manzanares has looked at the catheterization studies as well as the echocardiogram and the CT scan. The patient will require at least 3- to 5- vessel bypass. The RCA is occluded at 90%, the LAD at 85%, and there is a variety of occlusion throughout. We will plan for bypass to the RCA, LAD, diagonal, and possible marginal. We will get vein mapping. The patient had radials used from the previous surgery. We will get carotid studies. Risks PATIENT'S NAME: EDDY HOOKS [facility] AGE: 81 Y [address] ROOM: [id number] [place], [place] [address] LOC[facility]: [facility] ADMIT DATE: 01/10/2017 Consultation DISCHARGE DATE: FAMILY PHYSICIAN: SUZY DE SANTIAGO PA-C ATTENDING PHYSICIAN: Joey Lopes and benefits of the surgery were discussed. Discussion of the risks included, but were not limited to bleeding requiring transfusion or return to the operative suite, myocardial infarction, cerebrovascular accident, and renal and/or pulmonary failure. Also discussed were arrhythmias and infection as well as his postoperative mortality. The patient and verbalized understanding of the risks and benefits. They were reminded again of the limitations and restrictions following bypass surgery. The patient and family were also reminded that given that this is a redo sternotomy, the risk for bleeding is somewhat higher. The patient would like to proceed with surgery. We will gather the information from the workup studies and plan for the procedure. We would like to thank Dr. Lopes for allowing us to participate in the care of this very pleasant gentleman. MAXIMILIANO ROGEL APRN FOR OHLGER MANZANARES, DLQ/modl /[id number] d: 01/12/17 1435 t: 01/28/17 1411, CONSULTATION REPORT
--- NOTE | ~2017-01-10 | CON ---
PATIENT'S NAME: EDDY HOOKS [facility] AGE: 81 Y [address] ROOM: [place] [address] LOCATION: GICU ADMIT DATE: 01/10/2017 Consultation DISCHARGE DATE: FAMILY PHYSICIAN: SUZY DE SANTIAGO PA-C ATTENDING PHYSICIAN: Joey Lopes DATE OF CONSULTATION: 01/10/2017 REFERRING PHYSICIAN: Holger Appiah DO REASON FOR CONSULT: Chest pain. HISTORY OF PRESENT ILLNESS: This is an 81-year-old gentleman with a known history of coronary artery disease post 5-vessel CABG in 1996 at [facility]. He presents now with complaints of atypical chest discomfort, but did have elevated cardiac enzymes. He also had some mild anterolateral T-wave changes noted on his EKG. He reports that he has been a little more short of breath and has had some chest discomfort for the past 10 days or so. He denies palpitations, lightheadedness, presyncope, or syncopal episodes. He was admitted to the emergency room and underwent a CT scan to rule out PE per protocol which was negative. PAST MEDICAL HISTORY: 1. Diabetes mellitus, type 2. 2. Coronary artery disease. 3. Essential hypertension. 4. Hyperlipidemia. 5. Osteoarthritis. 6. 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 7. Heartburn. PAST SURGICAL HISTORY: 1. Appendectomy. 2. Repair of the amputated toes, second toe on the left, and left ring finger. 3. Cholecystectomy. 4. CABG in 1996. 5. Right inguinal hernia repair. 6. Colonoscopy. 7. Bilateral cataract surgery. ALLERGIES: NONE TO MEDICATIONS. PATIENT'S NAME: EDDY HOOKS [facility] AGE: 81 Y [address] ROOM: [place] [address] LOCATION: [facility] ADMIT DATE: 01/10/2017 Consultation DISCHARGE DATE: FAMILY PHYSICIAN: SUZY DE SANTAIGO PA-C ATTENDING PHYSICIAN: Joey Lopes CURRENT MEDICATIONS: 1. Acetaminophen 650 mg p.o. p.r.n. 2. Aspirin 81 mg daily. 3. Tenormin 100 mg b.i.d. 4. Atorvastatin 20 mg tablet, he takes half a tablet daily. 5. Prevalite powder 4 g every day. 6. Vasotec 2.5 mg daily. 7. Fish oil 1 capsule every day. 8. Metformin 500 mg every a.m. and 250 mg every h.s. 9. Theragran-M one tablet every day. 10. Nitrostat 0.4 mg sublingual p.r.n. FAMILY HISTORY: Father of Alzheimer's. Mother had hypertension, cause of is unknown, and he is an only child. SOCIAL HISTORY: He smokes, has attentive family including and his son. 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 HEAD: No history of headache. EYES: No blurred vision. He wears corrective lenses. EARS: He denies hearing disorder. NOSE: No epistaxis or rhinorrhea. MOUTH: No gingival bleeding. THROAT: No difficulty with swallowing. PULMONARY: He has been short of breath, especially when he raises his arms above his head, and with exertion, no history of cough or hemoptysis. GASTROINTESTINAL: Negative for nausea, vomiting, or diarrhea. GENITOURINARY: Negative for urinary frequency or urgency. No history of difficulty starting his stream. MUSCULOSKELETAL: He has generalized arthritis. PHYSICAL EXAMINATION: VITAL SIGNS: He is 5 feet 9 inches tall. He weighs 165 pounds. Blood pressure is 130/72, heart rate is 70. SKIN: Warm, dry, and pink. HEENT: Pupils equal, round, and react briskly. NECK: Soft and supple. No lymphadenopathy or thyromegaly. JVD is flat. LUNGS: Sounds are clear. CV: Regular with a normal S1, S2. ABDOMEN: Soft, with positive bowel sounds throughout. EXTREMITIES: Show no peripheral edema. No clubbing and no cyanosis. PATIENT'S NAME: EDDY HOOKS [facility] AGE: 81 Y [address] ROOM: [place] [address] LOCATION: [facility] ADMIT DATE: 01/10/2017 Consultation DISCHARGE DATE: FAMILY PHYSICIAN: SUZY DE SANTIAGO PA-C ATTENDING PHYSICIAN: Joey Lopes LABORATORY DATA: Troponin is 3.88 to 3.55, CPK 130 to 124. Hemoglobin was 15.4, white count 8.9, platelets were 176. Glucose 174, BUN 19, creatinine 1.1. Sodium 136, potassium was 4.2, magnesium 2.1. Hemoglobin A1c was 7.5. His UA was normal. ASSESSMENT: 1. Non Q-wave myocardial infarction. We will check an echocardiogram, looking for wall motion abnormalities, continue to trend his cardiac enzymes and continue the heparin and beta-lupillo therapy. I do anticipate he will need a left heart catheterization in the a.m. The risks and benefits have been discussed by Dr. Lazaro Lopes. 2. Hypertension. We will continue with his current home medications. 3. Diabetes mellitus. We will have the hospitalist involved and help maintain good blood sugar control. The assessment and plan, history of present illness, and physical exam, are per Lazaro Lopes. JOJO DICKEY APRN FOR MD JENIFER CONCEPCIONP/modl /[id number] d: 01/13/172035 t: 01/29/17 1321, CONSULTATION REPORT
--- NOTE | ~2017-01-10 | HP ---
PATIENT'S NAME: EDDY HOOKS [facility] AGE: 81 Y [address] ROOM: [address] [place], [place] [address] [facility] ADMIT DATE: 01/10/2017 History & Physical DISCHARGE DATE: FAMILY PHYSICIAN: SUZY DE SANTIAGO PA-C ATTENDING PHYSICIAN: Joey Lopes DATE OF SERVICE: CHIEF COMPLAINT: NSTEMI, atypical chest pain. HISTORY OF PRESENT ILLNESS: This is an 81-year-old male who is admitted for evaluation and management of NSTEMI. The patient tells me that he had been having sharp left-sided chest pain with associated anorexia and diminished appetite for the past 4 days. Chest pain apparently started about 4 days ago when he was getting out of his truck; at which point, he slipped and in an attempt to brace himself, exerted himself, and that is where the onset of the chest pain appears to be. The following 3 days, the patient continued to have this chest pain with some associated shortness of breath; at which point, the patient's family thought he should be seen. The patient was seen at the [facility] today and during workup was evaluated and checked for an acute VT and was found to have an elevated troponin at 3.1. The patient was also evaluated for PE and had CT/PE protocol done, which was negative. The patient during my visit today is lying comfortably in bed, not complaining of any chest pain, shortness of breath, dizziness, or lightheadedness. The patient states that chest pain is aggravated by activity. The patient has history of VT in the 90s and is status post 5-vessel bypass surgery; and at that point, states that his main presenting complaint was anorexia and loss of appetite without any nausea, vomiting, or diarrhea. His GI symptoms appeared to be similar to that presentation today. Otherwise, the patient denies any cough, fever, chills, dysuria, or frequency of urination. PAST MEDICAL HISTORY: Diabetes, coronary artery disease, status post CABG in 1996, hypertension, and hyperlipidemia. FAMILY HISTORY: The patient has family history of Alzheimer's disease in his father. SOCIAL HISTORY: No history of smoking, alcohol, or tobacco use. REVIEW OF SYSTEMS: A 10-point review of systems was conducted and were all negative except as PATIENT'S NAME: JESSEE, EDDY L [facility] AGE: 81 Y [address] ROOM: [address] [place], [place] [address] LOCATION: GPCU ADMIT DATE: 01/10/2017 History & Physical DISCHARGE DATE: FAMILY PHYSICIAN: SUZY DE SANTIAGO PA-C ATTENDING PHYSICIAN: Joey Lopes mentioned in the HPI. PHYSICAL EXAMINATION: VITAL SIGNS: Blood pressure 139/88, pulse 70, respiratory rate 14, saturating 95% on 2 L of oxygen, and afebrile. GENERAL: The patient is awake, alert, and oriented x3 in no apparent distress. HEAD: Normocephalic, atraumatic. NECK: No JVD. Supple. HEENT: Moist mucous membranes. No scleral icterus or conjunctival pallor noted. SKIN: Without lesions or rash. HEART: S1, S2, regular rate and rhythm. CHEST: Clear to auscultation bilaterally. ABDOMEN: Soft, nontender, nondistended with positive bowel sounds. MUSCULOSKELETAL: Full range of motion in upper and lower extremities. No redness or swelling noted in all joints. NEURO: Grossly nonfocal. LABORATORY DATA: Significant ones from [facility], troponin of 3.1, CT/PE negative for PE. Creatinine 1.3, baseline creatinine unclear. ASSESSMENT AND PLAN: 1. Scy-ZD-wyryppull myocardial infarction. The patient has elevated troponins plus chest pain. He has history of coronary artery disease, status post coronary artery bypass grafting in 1996. The patient currently does not have chest pain. He is on a heparin drip, we will continue this. We will add a low-dose beta lupillo to maintain a goal heart rate at rest between [address] Lopes with Cardiology seen for possible early cardiac catheterization. 2. Chronic kidney disease, stage 3. Creatinine 1.3, baseline unknown. The patient did receive intravenous contrast per pulmonary embolus protocol today. We will give intravenous gentle fluids and recheck kidney function in the morning before possible further contrast exposure for cardiac cath. 3. Type 2 diabetes. We will hold the patient's metformin from home and use sliding scale insulin. 4. Coronary artery disease, status post coronary artery bypass grafting in 1996. Continue cardiac medications and management as per non-ST- elevation myocardial infarction. 5. Hypertension. We will hold the patient's LLUVIA inhibitor. Continue beta- lupillo therapy. 6. Hyperlipidemia. Continue statin therapy. We will get fasting lipid panel in the morning. PATIENT'S NAME: EDDY HOOKS [facility] AGE: 81 Y [address] ROOM: [id number] [place] [address] LOCATION: [facility] ADMIT DATE: 01/10/2017 History & Physical DISCHARGE DATE: FAMILY PHYSICIAN: SUZY DE SANTIAGO PA-C ATTENDING PHYSICIAN: Joey Lopes 7. Deep vein thrombosis prophylaxis on heparin drip per acute coronary syndrome protocol. MD JULIAN GUERRERO/modl /[id number] D: 031 T: 923 HISTORY & PHYSICAL
--- NOTE | ~2017-01-10 | OR ---
PATIENT'S NAME: EDDY SHEPARD [facility] AGE: 82 Y [address] ROOM: [place] [address] LOCATION: GPCU ADMIT DATE: 01/10/2017 OR/Procedure Report DISCHARGE DATE: 01/27/2017 FAMILY PHYSICIAN: Terence Spears PA-C ATTENDING PHYSICIAN: Joey Lopes SURGEON: Holger Manzanares DO SAND HAULER: DATE OF PROCEDURE: 01/13/2017 PREOPERATIVE DIAGNOSIS: Decreased ventricular function. POSTOPERATIVE DIAGNOSIS: Decreased ventricular function. PROCEDURE: Insertion of intraaortic balloon pump. BRIEF HISTORY: Mr. Shepard is undergoing coronary artery bypass grafting. This is a redo procedure. He has a somewhat decreased ejection fraction and has had some ventricular arrhythmias. The femoral artery was accessed, and a guidewire fed under echocardiographic guidance into the arch. Soft-tissue dilator was placed over the guidewire and then removed and then the soft tissue dilator with the sheath was placed. The dilator was removed, and then the intraaortic balloon pump was fed over the guidewire to the level of the left subclavian artery. The guidewire was removed. It was connected to the intraaortic balloon pump. Appropriate counterpulsations were appreciated, and the patient was continued with his surgery. HOLGER MANZANARES DO MCB/modl /[id number] d: 02/15/172000 t: 02/16/17 1049, OPERATIVE SUMMARY
--- NOTE | 2017-01-10 15:38 | NUR ---
Pt is 81 y/o male admit for shortness breath,chest pain for Dr.DJ Lopes and hospitalist. Pt alert and oriented x3. No allergies. Lives at home with his . Pt has hx of htn,hypercholest,CAD,CABG,DM,arthritis left shoulder. Pt states he's had shortness of breath for past 2 days. He reports 2 days ago he slipped while getting into his pickup, denies falling and while he was slipping he inhaled a deep breath and had some chest pain.
[2017-01-10] MEDS ORDERED: ASPIRIN LO-DOSE81 MG PO (15:49)
[2017-01-10] MEDS ORDERED: TENORMIN100 MG PO (15:49)
[2017-01-10] MEDS ORDERED: ARTHRITIS PAIN650 M1 PO (15:50)
[2017-01-10] MEDS ORDERED: LIPITOR20 M1 PO (15:51)
[2017-01-10] MEDS ORDERED: PREVALITE POWD231 GM PO (15:53)
[2017-01-10] MEDS ORDERED: VASOTEC2.5 MG PO (15:54)
[2017-01-10] MEDS ORDERED: GLUCOPHAGE500 MG PO ×2 (15:55)
[2017-01-10] MEDS ORDERED: THERAGRAN-M1 TAB PO (15:56)
[2017-01-10] MEDS ORDERED: FISH OIL 1,2001 EACH PO (15:56)
[2017-01-10] MEDS ORDERED: NITROSTAT0.4 MG PO (15:57)
[2017-01-10 17:13] LABS: BASOPHIL % 0.3 %; EOSINOPHIL # 0.1 K/uL (0.0-0.5); EOSINOPHIL % 1.6 %; HEMATOCRIT 44.7 % (33.0-50.0); HEMOGLOBIN 15.4 g/dL (11.0-16.0); IMMATURE GRANULOCYTE % 0.2 %; LYMPHOCYTE # 1.6 K/uL (0.8-4.0); LYMPHOCYTE % 17.9 %; MCH 33.2 pg (27.0-34.0); MCHC 34.5 gm/dL (32.0-36.5); MCV 96.3 fl (83.0-98.0); MONOCYTE # 0.9 K/uL (0.0-1.0); MONOCYTE % 10.2 %; MPV 11.8 fl (9.4-12.4); NEUTROPHIL # (ANC) 6.2 K/uL (1.4-9.0); NEUTROPHIL % 69.8 %; NRBC % 0 /100WBC (0-0.00); PLATELET COUNT 176 K/uL (150-450); RBC 4.64 M/uL (3.50-5.50); WBC 8.9 K/uL (4.0-11.0)
[2017-01-10 17:33] LABS: PROTIME 10.6 SECONDS (9.6-11.1)
[2017-01-10 17:46] LABS: ALBUMIN 2.9 gm/dL (3.5-5.0); TOTAL PROTEIN 6.6 g/dL (6.0-8.4)
[2017-01-10 18:34] LABS: ANION GAP 16.2 (10.0-19.0); BLOOD UREA NITROGEN 19 mg/dL (6-24); CALCIUM 8.3 mg/dL (8.5-10.5); CHLORIDE 105 mMol/L (96-110); CO2 19 mMol/L (22-32); CREATININE 1.1 mg/dL (0.6-1.3); ESTIMATED GFR (MDRD EQUATION) > 60; MAGNESIUM 2.1 mg/dL (1.3-2.6); PHOSPHORUS 3.4 mg/dL (2.5-4.9); POTASSIUM 4.2 mMol/L (3.7-5.1); SODIUM 136 mMol/L (135-145)
--- NOTE | 2017-01-10 19:52 | NUR ---
Significant Event: A/O x3, cooperative with cares. VSS, SBP 130, HR 70s, oxygen at 2 liters. No c/o pain. Echo done. Heparin gtt at 900 units/hr; next PTThp at 2330. Plan for heart cath in AM with Dr. Lopes; consents not signed Follow up: NPO after midnight
[2017-01-11 05:12] LABS: ALBUMIN 2.8 gm/dL (3.5-5.0); ANION GAP 15.1 (10.0-19.0); BLOOD UREA NITROGEN 19 mg/dL (6-24); CHLORIDE 105 mMol/L (96-110); CO2 22 mMol/L (22-32); CREATININE 1.1 mg/dL (0.6-1.3); ESTIMATED GFR (MDRD EQUATION) > 60; MAGNESIUM 2.1 mg/dL (1.3-2.6); PHOSPHORUS 2.8 mg/dL (2.5-4.9); POTASSIUM 4.1 mMol/L (3.7-5.1); SODIUM 138 mMol/L (135-145)
--- NOTE | 2017-01-11 05:17 | NUR ---
Significant Event: DENIES PAIN ALL NIGHT. VOIDING WELL PER URINAL. HEPARIN CONTINUES PER PROTOCOL. CURRENTLY AT 1100 UNITS/HR. NEXT PTTHP SCHEDULED FOR 1120 THIS AM. REMAINS ON 2L PER NC. CARDIAC ENZYMES HIGH BUT TRENDING DOWN. NPO AFTER MIDNIGHT FOR POSSIBLE HEART CATH TODAY. Follow up:
--- NOTE | 2017-01-11 11:37 | NUR ---
Pt down for heart cath. AT this time nursing does not anticipate any dc neesd.
[2017-01-11 15:55] LABS: HEMATOCRIT 45.6 % (33.0-50.0); HEMOGLOBIN 15.5 g/dL (11.0-16.0); MCH 33.1 pg (27.0-34.0); MCV 97.4 fl (83.0-98.0); MPV 11.5 fl (9.4-12.4); RBC 4.68 M/uL (3.50-5.50); RDW-CV 13.1 % (11.9-14.6); WBC 6.9 K/uL (4.0-11.0)
[2017-01-11 16:00] LABS: INR - (THERAPEUTIC) 1.1 (0.9-1.1); PROTIME 11.1 SECONDS (9.6-11.1)
[2017-01-11 16:18] LABS: BILIRUBIN URINE NEGATIVE (NEGATIVE); BLOOD URINE NEGATIVE /UL (NEGATIVE); COLOR URINE YELLOW (YELLOW); GLUCOSE URINE NEGATIVE (NEGATIVE); KETONE URINE 5 mg/dL (NEGATIVE); LEUKOCYTES URINE NEGATIVE /UL (NEGATIVE); NITRITE URINE NEGATIVE (NEGATIVE); PROTEIN URINE 15 mg/dL (NEGATIVE); TURBIDITY URINE CLEAR (CLEAR); UROBILINOGEN URINE 1 mg/dL (NORMAL)
[2017-01-11 16:26] LABS: BACTERIA URINE NEGATIVE (NEGATIVE); EPITHELIAL URINE 0-2 #/HPF (NEGATIVE); RBC URINE NEGATIVE #/HPF (NEGATIVE); WBC URINE RARE #/HPF (NEGATIVE)
--- NOTE | 2017-01-11 19:10 | NUR ---
Significant Event: A/O x3, cooperative with cares. VSS, SBPs 100-130s, HRs 70-80s, on room air. No c/o pain. Heart cath today; R) groin site soft non-tender; a little bit of oozing present on the dressing, outlined. No intervention, CABG consult. Dr. Appiah et Esther up to visit with patient et family. Vein mapping et carotid ultrasound done. Dr. Mendoza consulted d/t occluded R) carotid. Heparin gtt continues at 1200 units/hr. next PTThp at 1940. Up with SBA assist. Follow up:NPO after midnight on Tuesday; R) carotid et CABG on . PTTHP at 1940
[2017-01-12 02:40] LABS: ALBUMIN 2.7 gm/dL (3.5-5.0); ALK PHOS 96 IU/L (33-138); ALT 25 IU/L (12-78); ANION GAP 13.9 (10.0-19.0); AST 30 IU/L (10-40); BLOOD UREA NITROGEN 15 mg/dL (6-24); CHLORIDE 105 mMol/L (96-110); CO2 21 mMol/L (22-32); CREATININE 1.1 mg/dL (0.6-1.3); ESTIMATED GFR (MDRD EQUATION) > 60; POTASSIUM 3.9 mMol/L (3.7-5.1); SODIUM 136 mMol/L (135-145); TOTAL BILIRUBIN 0.8 mg/dL (0.0-1.5); TOTAL PROTEIN 6.2 g/dL (6.0-8.4)
--- NOTE | 2017-01-12 04:39 | NUR ---
Significant events: Pt A/Ox3. VSS. No complaints of chest pain. SOB with activitiy. On RA. Up SBA. Loose BMx1. Slept most of shift. Heparin continues at 1300, next ptthp at 0900. Follow up: plan for carotid endarterectomy tomorrow in AM with Reji followed by CABG with Bij[facility]
[2017-01-12 14:20] LABS: ANION GAP 15.8 (10.0-19.0); BLOOD UREA NITROGEN 12 mg/dL (6-24); CALCIUM 8.4 mg/dL (8.5-10.5); CHLORIDE 102 mMol/L (96-110); CO2 22 mMol/L (22-32); CREATININE 1.1 mg/dL (0.6-1.3); ESTIMATED GFR (MDRD EQUATION) > 60; PHOSPHORUS 2.6 mg/dL (2.5-4.9); POTASSIUM 3.8 mMol/L (3.7-5.1)
[2017-01-12 14:43] LABS: SODIUM 136 mMol/L (135-145)
--- NOTE | 2017-01-12 15:04 | NUR ---
Introduced self and role of care management to pt. [place]. He has grown children and grandchildren and they have a ranch up there. 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 At this time his and son Manny are down here. He did have open heart 20 years ago. Will continue to follow and assist with any dc plans after surgery.
--- NOTE | 2017-01-12 17:23 | NUR ---
Significant event: A&Ox3. HR 90's. SBP 140-150's. Afebrile. Lungs clear/diminished, on room air. Next ptthp at 2130. Permits signed. 5 meter walk done and charted. Follow Up: R) carotid and CABG in AM.
[2017-01-13 05:10] LABS: BASOPHIL % 0.6 %; EOSINOPHIL # 0.2 K/uL (0.0-0.5); EOSINOPHIL % 3.4 %; HEMATOCRIT 42.2 % (33.0-50.0); IMMATURE GRANULOCYTE % 0.3 %; LYMPHOCYTE # 1.5 K/uL (0.8-4.0); LYMPHOCYTE % 23.7 %; MCH 32.2 pg (27.0-34.0); MCHC 33.2 gm/dL (32.0-36.5); MONOCYTE # 0.8 K/uL (0.0-1.0); MONOCYTE % 11.7 %; MPV 11.4 fl (9.4-12.4); NEUTROPHIL # (ANC) 3.9 K/uL (1.4-9.0); NEUTROPHIL % 60.3 %; NRBC % 0 /100WBC (0-0.00); PLATELET COUNT 207 K/uL (150-450); RBC 4.35 M/uL (3.50-5.50); WBC 6.4 K/uL (4.0-11.0)
--- NOTE | 2017-01-13 05:11 | NUR ---
Significant Event: Patient is alert and oriented x 3. VSS on room air. HRs in the 90s. SBPs in the 1 teens-140s. Afebrile. Up with 1 assist. Heparin gtt turned off at 0200. Sodium Bicarb running at 50 ml/hr in right forearm IV. Left hand IV, saline locked. Patient showered last night and scrubbed down with CHG wipes x 2. Denies any pain. ACHS accuchecks with carb count. Became NPO at midnight. Patient pleasant and cooperative with cares. Went down to OR at 0510 this am. Follow up: CABG and right carotid this am.
[2017-01-13 05:30] LABS: ALBUMIN 2.8 gm/dL (3.5-5.0); ALK PHOS 102 IU/L (33-138); ALT 22 IU/L (12-78); ANION GAP 12.6 (10.0-19.0); AST 29 IU/L (10-40); BLOOD UREA NITROGEN 9 mg/dL (6-24); CALCIUM 8.1 mg/dL (8.5-10.5); CHLORIDE 103 mMol/L (96-110); CO2 24 mMol/L (22-32); ESTIMATED GFR (MDRD EQUATION) > 60; POTASSIUM 3.6 mMol/L (3.7-5.1); SODIUM 136 mMol/L (135-145); TOTAL PROTEIN 6.3 g/dL (6.0-8.4)
[2017-01-13 15:16] LABS: HEMOGLOBIN 8.9 g/dL (11.0-16.0); MCV 97.1 fl (83.0-98.0); MPV 11.4 fl (9.4-12.4)
[2017-01-13 15:26] LABS: PTT 56 SECONDS (25-32)
[2017-01-13 15:27] LABS: INR - (THERAPEUTIC) 1.8 (0.9-1.1); PROTIME 19.4 SECONDS (9.6-11.1)
[2017-01-13 15:29] LABS: HEMATOCRIT 26.8 % (33.0-50.0); MCH 32.2 pg (27.0-34.0); MCHC 33.2 gm/dL (32.0-36.5); PLATELET COUNT 88 K/uL (150-450); RBC 2.76 M/uL (3.50-5.50); WBC 12.8 K/uL (4.0-11.0)
--- NOTE | 2017-01-13 16:28 | NUR ---
Pt to floor 1605, placed in SIMV mode, RR 11, TV 600, P 5, PS 10, Fio2 80%. ETT 8.0 secured with tape at 21 teeth. Initial ETCO2 33. Good bilateral lung sounds. Will wean per CABG protocol
[2017-01-13 16:50] LABS: BICARBONATE 18.8 mmol/L (18.0-23.0); PCO2 41 mmHg (35-45); PO2 126 mmHg (80-90)
--- NOTE | 2017-01-13 16:57 | NUR ---
ETT advanced 2cm to 23 at the teeth
[2017-01-13 17:11] LABS: BLOOD UREA NITROGEN 6 mg/dL (6-24); CALCIUM 8.5 mg/dL (8.5-10.5); CHLORIDE 113 mMol/L (96-110); CO2 20 mMol/L (22-32); CREATININE 1.1 mg/dL (0.6-1.3); ESTIMATED GFR (MDRD EQUATION) > 60
[2017-01-13 17:12] LABS: ANION GAP 14.6 (10.0-19.0); POTASSIUM 3.6 mMol/L (3.7-5.1); SODIUM 144 mMol/L (135-145)
[2017-01-13 17:23] LABS: ALPHA ANGLE 70 degrees; ALPHA ANGLE 71 degrees (70-81); CLOT FORMATION TIME 106 seconds; CLOTTING TIME 176 seconds; CLOTTING TIME 98 seconds (43-82); MAXIMUM CLOT FIRMNESS 54 mm; MAXIMUM CLOT FIRMNESS 57 mm (51-72); MAXIMUM LYSIS 0 %
[2017-01-13 18:30] LABS: BASOPHIL % 0.1 %; EOSINOPHIL % 0.3 %; HEMATOCRIT 21.7 % (33.0-50.0); IMMATURE GRANULOCYTE # 0.1 K/uL (0.0-0.3); IMMATURE GRANULOCYTE % 1.3 %; LYMPHOCYTE # 0.9 K/uL (0.8-4.0); LYMPHOCYTE % 10.5 %; MCH 31.8 pg (27.0-34.0); MCHC 32.3 gm/dL (32.0-36.5); MCV 98.6 fl (83.0-98.0); MONOCYTE # 0.7 K/uL (0.0-1.0); MONOCYTE % 8.4 %; MPV 9.9 fl (9.4-12.4); NEUTROPHIL # (ANC) 6.9 K/uL (1.4-9.0); NEUTROPHIL % 79.4 %; NRBC % 0 /100WBC (0-0.00); PLATELET COUNT 120 K/uL (150-450); RDW-CV 14.7 % (11.9-14.6); WBC 8.7 K/uL (4.0-11.0)
[2017-01-13 18:40] LABS: PROTIME 15.3 SECONDS (9.6-11.1)
[2017-01-13 18:41] LABS: INR - (THERAPEUTIC) 1.4 (0.9-1.1); PTT 82 SECONDS (25-32)
[2017-01-13 19:11] LABS: ALPHA ANGLE 69 degrees; CLOT FORMATION TIME 108 seconds; CLOTTING TIME 171 seconds; MAXIMUM CLOT FIRMNESS 55 mm; MAXIMUM LYSIS 0 %
[2017-01-13 19:12] LABS: ALPHA ANGLE 72 degrees (70-81); CLOTTING TIME 65 seconds (43-82); MAXIMUM CLOT FIRMNESS 56 mm (51-72)
[2017-01-13 19:22] LABS: BICARBONATE 23.5 mmol/L (18.0-23.0); PCO2 34 mmHg (35-45); PO2 202 mmHg (80-90); POTASSIUM 3.3 mEq/L (3.7-5.1); SODIUM 137 mEq/L (135-145)
[2017-01-13 19:23] LABS: BICARBONATE 26.1 mmol/L (18.0-23.0); PCO2 42 mmHg (35-45); PO2 235 mmHg (80-90)
[2017-01-13 19:24] LABS: POTASSIUM 4.1 mEq/L (3.7-5.1); SODIUM 137 mEq/L (135-145)
[2017-01-13 19:25] LABS: BICARBONATE 25.2 mmol/L (18.0-23.0); PCO2 39 mmHg (35-45); PO2 225 mmHg (80-90); SODIUM 138 mEq/L (135-145)
[2017-01-13 19:32] LABS: PCO2 50 mmHg (35-45); PO2 312 mmHg (80-90); POTASSIUM 3.7 mEq/L (3.7-5.1); SODIUM 138 mEq/L (135-145)
[2017-01-13 19:33] LABS: BICARBONATE 22.3 mmol/L (18.0-23.0); PCO2 40 mmHg (35-45); PO2 353 mmHg (80-90)
[2017-01-13 19:34] LABS: POTASSIUM 3.2 mEq/L (3.7-5.1); SODIUM 138 mEq/L (135-145)
[2017-01-13 20:09] LABS: BICARBONATE 22.3 mmol/L (18.0-23.0); PCO2 33 mmHg (35-45); PO2 68 mmHg (80-90)
[2017-01-13 20:10] LABS: POTASSIUM 3.7 mEq/L (3.7-5.1); SODIUM 136 mEq/L (135-145)
[2017-01-13 20:10] LABS: BICARBONATE 15.5 mmol/L (18.0-23.0); PCO2 37 mmHg (35-45); PO2 280 mmHg (80-90)
[2017-01-13 20:11] LABS: SODIUM 146 mEq/L (135-145)
[2017-01-13 20:12] LABS: BICARBONATE 20.6 mmol/L (18.0-23.0); PCO2 38 mmHg (35-45); PO2 265 mmHg (80-90); POTASSIUM 3.3 mEq/L (3.7-5.1); SODIUM 149 mEq/L (135-145)
[2017-01-13 20:13] LABS: BICARBONATE 21.2 mmol/L (18.0-23.0); PCO2 40 mmHg (35-45); PO2 244 mmHg (80-90); POTASSIUM 3.2 mEq/L (3.7-5.1); SODIUM 149 mEq/L (135-145)
[2017-01-13 21:00] LABS: BICARBONATE 24.8 mmol/L (18.0-23.0); EOSINOPHIL % 0.2 %; IMMATURE GRANULOCYTE # 0.1 K/uL (0.0-0.3); IMMATURE GRANULOCYTE % 0.9 %; LYMPHOCYTE # 0.6 K/uL (0.8-4.0); LYMPHOCYTE % 8.7 %; MCHC 33.2 gm/dL (32.0-36.5); MCV 94.1 fl (83.0-98.0); MONOCYTE # 0.8 K/uL (0.0-1.0); MONOCYTE % 12.1 %; MPV 10.2 fl (9.4-12.4); NEUTROPHIL # (ANC) 5.1 K/uL (1.4-9.0); NEUTROPHIL % 78.1 %; NRBC % 0 /100WBC (0-0.00); PCO2 46 mmHg (35-45); PLATELET COUNT 105 K/uL (150-450); RDW-CV 14.6 % (11.9-14.6); WBC 6.5 K/uL (4.0-11.0)
[2017-01-13 21:02] LABS: PO2 115 mmHg (80-90)
[2017-01-13 21:03] LABS: HEMATOCRIT 30.1 % (33.0-50.0); MCH 31.3 pg (27.0-34.0)
[2017-01-13 21:14] LABS: CREATININE 1.4 mg/dL (0.6-1.3)
[2017-01-13 21:18] LABS: CALCIUM 7.4 mg/dL (8.5-10.5)
[2017-01-13 21:23] LABS: INR - (THERAPEUTIC) 1.2 (0.9-1.1); PROTIME 12.8 SECONDS (9.6-11.1)
--- NOTE | 2017-01-14 04:05 | NUR ---
SIGNIFICANT EVENT: PT RETURNED TO OR SHORTLY BEFORE BEGINNING OF THE SHIFT. WHEN RETURNED FROM OR PT WAS RUNNING BRET, LEVO, EPI, DOBUTAMINE, INSULIN, BICARB, AMIO, WITH IABP. TACHYCARDIC 100S TO 110S T/O SHIFT. BRET OFF SHORTLY AFTER PT RETURN FROM OR. LEVO AND EPI UP AND DOWN DUE TO LABILE PRESSURES. 500ML 5% ALBUMIN GIVEN X1. PT NOTED TO HAVE ABNORMAL ECG UPON ARRIVAL, 12-LEAD PERFORMED AND RESULTS REPORTED TO DR. MANZANARES. PT BEGAN HAVING FREQUENT PACs AT 0300. PT STARTED FOLLOWING COMMANDS AT 2330, CONTINUED TO BE MORE RESPONSIVE THROUGHOUT SHIFT. FIO2 DOWN TO 50% AT 0400. PROTAMINE GIVEN AT 2230 FOR CONTINUED INCREASED CHEST TUBE OUTPUT WITH CLOTS, THIS IMPROVED CHEST TUBE OUTPUT AND DRAINAGE APPEARANCE. FOLLOW UP:
[2017-01-14 04:08] LABS: BICARBONATE 26.4 mmol/L (18.0-23.0); PCO2 38 mmHg (35-45); PO2 123 mmHg (80-90)
[2017-01-14 04:24] LABS: CREATININE 1.3 mg/dL (0.6-1.3); POTASSIUM 3.7 mMol/L (3.7-5.1)
[2017-01-14 04:27] LABS: ANION GAP 14.7 (10.0-19.0); CALCIUM 7.4 mg/dL (8.5-10.5)
[2017-01-14 04:29] LABS: HEMATOCRIT 26.6 % (33.0-50.0); HEMOGLOBIN 9.1 g/dL (11.0-16.0); MCH 31.4 pg (27.0-34.0); MCHC 34.2 gm/dL (32.0-36.5); MCV 91.7 fl (83.0-98.0); MPV 11.1 fl (9.4-12.4); RBC 2.9 M/uL (3.50-5.50); RDW-CV 15.6 % (11.9-14.6); WBC 7.7 K/uL (4.0-11.0)
--- NOTE | 2017-01-14 04:55 | NUR ---
Patient went back to surgery just before shift change. He came back to the floor around 1954. At this time he was changed to AC, 600, 10, and a PEEP of 5 with a FiO2 of 80%. Through out the shift the respiratory rate was increase to 12, ETT advanced to 25 cm at the teeth, and the FIO2 weaned to 40%. Breath sounds are slightly coarse at times with small amounts to moderate amounts of thick white sputum being suctioned. Will continue to wean.
--- NOTE | 2017-01-14 11:24 | NUR ---
A - PT SCREENED D/T LOS. S/P CABG. PROLONGED SURGERY. VENT - POSSIBLE EXTUBATION TODAY. MINIMAL INTAKE SINCE ADMIT D/T NPO MULTIPLE TIMES. HT: 69# WT: 01/14 187#, 01/10 163# BMI ON ADMIT 24.1 LABS: ACCUCHECK REAS->200, NA 146, GLU 265, ALB 2.8, PREALB 15, A1C 7.5 MEDS: PEPCID, INSULIN, D5LR, NAUSEA DIET: NPO. NEEDS (BASED ON ADMIT WT): 5999-1805 KCAL (25-30 KCAL/KG), 74-89 G PRO (1-1.2 G/KG), 2000 ML FLUID (27 ML/KG - D/T CABG) D - INADEQUATE NUTRIENT INTAKE R/T FREQUENT NPO STATUS AEB DIET ORDER HX, CURRENT NPO STATUS. I - GOAL FOR EXTUBATION AND ORAL DIET TO START W/IN 24 HRS. WILL ADD SUPPLEMENT WHEN DIET STARTED. IF UNABLE TO START ORAL DIET WILL PROVIDE TF RECS (CURRENTLY NO OGT) M/E - WILL MONITOR DIET, INTAKE F/U IN 3-4 DAYS.
--- NOTE | 2017-01-14 17:12 | NUR ---
Significant Event: IABP removed this AM without complication; procedure site remains soft without swelling or drainage. Continues on Levophed and epinephrine for BP/cardiac index support. Sitting up in bed, tolerating well. Weaning vent for extubation; currently in CPAP 03/18. Pain controlled to tolerable level with morphine x2. Family at bedside intermittently. Follow up: continue
--- NOTE | 2017-01-14 17:48 | NUR ---
Pt extubated 1730 to 4L NC
[2017-01-15 05:16] LABS: ANION GAP 13.3 (10.0-19.0); CALCIUM 8.2 mg/dL (8.5-10.5); CREATININE 1.2 mg/dL (0.6-1.3); POTASSIUM 4.3 mMol/L (3.7-5.1)
[2017-01-15 05:53] LABS: HEMATOCRIT 30.5 % (33.0-50.0); HEMOGLOBIN 9.9 g/dL (11.0-16.0); MCH 31.1 pg (27.0-34.0); MCHC 32.5 gm/dL (32.0-36.5); MCV 95.9 fl (83.0-98.0); MPV 11.9 fl (9.4-12.4); RBC 3.18 M/uL (3.50-5.50); RDW-CV 16.4 % (11.9-14.6)
--- NOTE | 2017-01-15 07:08 | NUR ---
Significant Event: Patient alert, oriented to person and time. Re-oriented to place easily. SR with occasional PACs. HR 90-100s. BP stable with levophed currently at 0.08mcg/kg/min and epi at 3mcg/min. Patient D/C'd arterial line this shift. CO 3.5-4.7 CI 1.8-2.5 CVP 10-17. O2 weaned to 1L/NC, slightly coarse lung sounds occasionally, weak cough. CT x4 intact. Mediastinal x2 bloody output. R)L) pleural serosangueounous. Wound vac intact. Bowel sounds active, tolerating whole pills and water well. Barrett intact, adequate UOP. No new or worsening skin issues. Afebrile. Follow up: Wean pressors. Increase activity.
--- NOTE | 2017-01-15 19:21 | NUR ---
Significant Event:Patient is A/Ox2. Had a bit of confusion briefly today in which he hallucinated bugs on the skelton, did not recognize staff as credible,and could not recall recent history. and daughter were able to reorientate and patient did clear back to baseline of oriented to person/time/ and states that in hospital. SR with HR 90-low 100's, no ectopy noted. Off Epi gtt at 1000. Levo gtt currently weaned to 0.04mcg/kg/min. To wean for Map>70. Keep SBP<140. Current CVP 8-10. [place] discontinued today. Titrated to RA @0700, lungs asculated clear/diminished with fine crackles in bases on last assessement. Mediasteinal CTX2 pulled today, small amount of serosang drainage on dressing. Left and Right pleural CT placed to water seal only, no fluctuations or crepitus noted. Pacer wires capped and secured to chest with tape. Barrett patent. Gave Bumex 2mg IVx1 for decreased UOP this am, total of 1480ml out this shift. Clear liquids only today, no issues with swallowing. Poor appetite. Hypo-active bowel sounds, no BM, passing gas. Insulin gtt discontinued today and started on agressive SSI with AC/HS accuchecks. [place] 1 tab givenx1.New order for PT/OT. Follow up: Ok to discontinue to IJ with weaned of levophed.Need sputum culture. Please ask if she needs a guest tray when ordering meals for patient.
[2017-01-16 05:06] LABS: CALCIUM 8.1 mg/dL (8.5-10.5)
[2017-01-16 05:07] LABS: ANION GAP 16.3 (10.0-19.0); CREATININE 1.9 mg/dL (0.6-1.3); POTASSIUM 5.3 mMol/L (3.7-5.1)
[2017-01-16 05:10] LABS: BASOPHIL % 0.1 %; EOSINOPHIL % 0.1 %; HEMATOCRIT 28.9 % (33.0-50.0); HEMOGLOBIN 9.2 g/dL (11.0-16.0); IMMATURE GRANULOCYTE # 0.2 K/uL (0.0-0.3); IMMATURE GRANULOCYTE % 1.9 %; MCH 31.2 pg (27.0-34.0); MCHC 31.8 gm/dL (32.0-36.5); MONOCYTE # 1.3 K/uL (0.0-1.0); MONOCYTE % 10.6 %; MPV 11.6 fl (9.4-12.4); NEUTROPHIL # (ANC) 9.7 K/uL (1.4-9.0); NEUTROPHIL % 79.3 %; NRBC % 0.6 /100WBC (0-0.00); PLATELET COUNT 141 K/uL (150-450); RBC 2.95 M/uL (3.50-5.50); WBC 12.2 K/uL (4.0-11.0)
--- NOTE | 2017-01-16 05:51 | NUR ---
Significant Event: Pt has been drowsy thoughout this shift, but is arousable. He is orineted to self and year, but not to place. He did have an episode of being uncooperative and very forgetfull during second assessment. Pupils are equal and reactive. Moves all extremities spontaneously and to command. Movements are weak. He is very weak and slumps when he stands. On Levo gtt. Bilateral chest tubes in place. Sternal dressing has a wound vac in place with minimal output this shift. Pulses in the lower extremity were doplered this shift. Barrett cath in place with good urine output this shift. No BM this shift. Follow up: Lila of Levo. Continue to monitor.
[2017-01-16 15:01] LABS: ALBUMIN 3.2 gm/dL (3.5-5.0); CALCIUM 7.6 mg/dL (8.5-10.5); CREATININE 2.1 mg/dL (0.6-1.3); PHOSPHORUS 3.9 mg/dL (2.5-4.9)
--- NOTE | 2017-01-16 18:48 | NUR ---
Significant Event: Patient is A/Ox2,knows in hospital but not mccamey. More awake this afternoon and no confusion noted this shift. [place] discontinued. Tylenol ES 1-2tabs q6h prn pain,given x1 for headache.Regular tylenol x1 for chest incisional pain. SR-ST with HR 90's.[id number]. Albumin 500ml given x1. RA with spo2 >93%. Lungs ascultated clear/diminished.IS needs work,barely gets to 500ml vasquez. ADA soft diet, poor appetite. Active bowel sounds, no BM. AC/HS accuchecks, treatedx3. Barrett patent, had some low UOP, Renal lab checked, new order for 25% of 100ml albumin q6hx4, first dose done. First albumin dose was followed by 2mg IVP of bumex. Heavy 2 max assist. Sputum culture obtained today, see report. To wean levo gtt for Map>70, currently at 0.03mg/kg/min. Afebrile. Follow up: Vascular consult regarding purple toes, please call him in am, order in computer. Continue to wean levo. Please ask if needs a guest tray at meal times.
[2017-01-17 04:30] LABS: ALBUMIN 3.8 gm/dL (3.5-5.0); ANION GAP 16.4 (10.0-19.0); CALCIUM 7.7 mg/dL (8.5-10.5); PHOSPHORUS 3.6 mg/dL (2.5-4.9); POTASSIUM 4.4 mMol/L (3.7-5.1)
[2017-01-17 04:33] LABS: HEMATOCRIT 26.4 % (33.0-50.0); HEMOGLOBIN 8.5 g/dL (11.0-16.0); MCH 31.6 pg (27.0-34.0); MCHC 32.2 gm/dL (32.0-36.5); MCV 98.1 fl (83.0-98.0); MPV 11.8 fl (9.4-12.4); PLATELET COUNT 144 K/uL (150-450); RBC 2.69 M/uL (3.50-5.50); RDW-CV 15.6 % (11.9-14.6); WBC 10.3 K/uL (4.0-11.0)
[2017-01-17 05:22] LABS: ABSOLUTE NEUTROPHIL CT (ANC) 8.6 K/uL (1.4-9.0); BANDED NEUTROPHIL # 2.1 K/uL (0.0-0.1); BANDED NEUTROPHILS % 20 %; LYMPHOCYTE # 1.1 K/uL (0.8-4.0); LYMPHOCYTE % 11 %; MONOCYTE # 0.6 K/uL (0.0-1.0); SEGMENTED NEUTROPHIL # 6.5 K/uL (1.4-9.0); SEGMENTED NEUTROPHIL % 63 %
--- NOTE | 2017-01-17 06:45 | NUR ---
Significant Event: :Patient is A/Ox2. Disoriented to place. Follows commands. Moves all extremities. Weak throughout. Equal bilateral hand grasp. Pupils 3brisk. HR's 90's. Levophed weaned off at 0430. Maps since 70's. CVP 12-19. Afebrile. L) CT with 140ml out. R) CT with 92ml out. Dressings C/D/I. Doppler pedal/tibial pulses. Remains RA. o2 saturations 89-97%. Barrett to DD with adeq UOP. NO BM. Milk of mg given this am. Follow up:Mendoza consult, Speech eval, possible PCU status.
--- NOTE | 2017-01-17 10:48 | NUR ---
A-NUTRITION F/U S/P CABG; EXTUBATED. DISORIENTED TO PLACE. SPEECH EVAL CONSULT NOTED. NO BM; MOM GIVEN. SMEAR THIS AM LABS: NA 136, K+ 4.4, GLU 182, BUN 41, RETAIL ASSOCIATE MANAGER BILINGUAL 2.0, ALB 3.8 MEDS: K-TAB, LASIX, REMERON, NOVOLOG (CHO COUNT), NOVOLOG (MOD SS), PEPCID DIET RX: CONSISTENT CARB/SOFT DIET W/2000 ML FLUID RESTRICTION. GLUCERNA TID W/MEALS. PO INTAKE REF-50% EST NUTR NEEDS: 7995-1911 KCALS AND 74-89 GM PROTEIN D-AT NUTRITION RISK W/INADEQUATE INTAKE OF NUTRIENTS R/T FREQ NPO STATUS, DECREASED APPETITE AEB DIET ORDER HX, INTAKE RECORDS. I-CONTINUE W/GLUCERNA TID (STARTED 01/15) M/E-GOAL: PO INTAKE >/=50% BY NEXT F/U 1)F/U PO INTAKE, SUPPLEMENT, AND POC IN 3-5 DAYS 2)ASSIST NEEDED
--- NOTE | 2017-01-17 12:22 | NUR ---
Introduced self and role of care management to pt's . She is staying at the [facility]. She stated he is more sleepy today then yesterday. I explained I spoke with him prior to surgery and where he lives and what he likes to do. She states he puts many miles on the [address]. I explained I guy follow and assist with dc plans and he may need hhc, or swingbed or just be able to go home. She states she agree's an they see Dr Topete or the PA's up in [place] if the swingbed would be needed. Will continue to follow and assist as needed.
--- NOTE | 2017-01-17 15:39 | NUR ---
Significant Event: CARDIO/RESP: Left pleural chest tube 150 mL serosanguinous, right pleural chest tube 220 ml serosanguinous. Room air. Thready pulses. Doppler pedal and post tibial pulses. Purple toes on left foot assessed by Dr. Mendoza and SANJEEV, arteries scanned. NSR. HR 80s-90s. SBP 100s-120s, MAPs 60s-70s. Afebrile. Max temp 98.9. GI/: 1 liquid small BM. Barrett catheter in place. Good urine output.
--- NOTE | 2017-01-17 20:34 | NUR ---
PT TRANSFERRED TO PCU 6338 AT 2024. PT A/OX3, DROWSY AT TIMES, ALVAREZ SPONTANEOUSLY AND TO COMMAND WITH EQUAL STRENGTH BILATERALLY. DENIES NUMBNESS, TINGLING, HEADACHE. SR ON MONITOR 90S, BP NORMOTENSIVE, AFEBRILE, EDEMA PRESENT. LUNGS CLEAR/DIM ON ROOM AIR, SATS LOW-MID 90S. BS PRESENT, BMX1 THIS SHIFT. UOP GOOD. SEE FLOWSHEET FOR SKIN ISSUES. ALL LINES REMAIN INTACT AND PATENT. SURGICAL SITES, LINES, AND DRESSINGS LOOKED AT WITH RN TAKING OVER PATIENT CARES. PT TRANSFERRED FROM CHAIR TO BED AFTER XFR TO PCU. CHEST TUBES INTACT, S/S OUTPUT, FLUCTUATIONS WITH BREATHING, NO CREPITUS, DRESSING INTACT. CORNELL VALERIO RN
--- NOTE | 2017-01-17 21:12 | NUR ---
Pt was transferred from ICU to PCU @ 2014. Pt's vitals were 94% RA, 28 resps, 97.7 temp, 95 heart rate, and 114/59.
--- NOTE | 2017-01-18 04:44 | NUR ---
Significant Event: Alert, disoriented to time and place. Answers questions appropriately. Denies pain. VSS on RA. SBP 110s-120s. 28-32 respirations. Shallow breathing. Bilat chest tubes, 80ml rt side, 60ml out left side. wound vac on sternal site. post tib and dorsal pedal pulses on doppler. 1-2+ edema left hand, ankles, and feet. Left leg harvest sites open to air, oozing at times. Turn q 2 hours. Heavy 2 assist. Barrett w/ 850ml out. Follow up: Continue to monitor per plan of care.
[2017-01-18 05:03] LABS: HEMATOCRIT 29.6 % (33.0-50.0); HEMOGLOBIN 9.5 g/dL (11.0-16.0); MCH 31.8 pg (27.0-34.0); MCHC 32.1 gm/dL (32.0-36.5); MPV 11.1 fl (9.4-12.4); RBC 2.99 M/uL (3.50-5.50); RDW-CV 15.9 % (11.9-14.6); WBC 12.6 K/uL (4.0-11.0)
[2017-01-18 05:06] LABS: PLATELET COUNT 201 K/uL (150-450)
[2017-01-18 05:18] LABS: ALBUMIN 3.5 gm/dL (3.5-5.0); ANION GAP 15.9 (10.0-19.0); CREATININE 2.1 mg/dL (0.6-1.3); MAGNESIUM 2.6 mg/dL (1.3-2.6); PHOSPHORUS 3.1 mg/dL (2.5-4.9); POTASSIUM 3.9 mMol/L (3.7-5.1)
[2017-01-18 05:38] LABS: ABSOLUTE NEUTROPHIL CT (ANC) 9.8 K/uL (1.4-9.0); BANDED NEUTROPHIL # 2.5 K/uL (0.0-0.1); BANDED NEUTROPHILS % 20 %; LYMPHOCYTE # 2.3 K/uL (0.8-4.0); LYMPHOCYTE % 18 %; MONOCYTE # 0.1 K/uL (0.0-1.0); SEGMENTED NEUTROPHIL # 7.3 K/uL (1.4-9.0); SEGMENTED NEUTROPHIL % 58 %
--- NOTE | 2017-01-18 16:36 | NUR ---
A&0. DROWSY. VSS. LS CLEAR. HEAVY 2PA. [employer] VD'S. NO BM TODAY. [employer] TO CHEST WOUND VAC INTACT. BILAT CHEST TUBES. MIDLINE CT SITE GAUZE/TAPE SHADOW DRAINAGE. HARVEST SITES TO RLE. DOPPLER PULSES. CAROTID TO R) IJ SITE TO L). PLAN MARKIE SB TUESDAY?
--- NOTE | 2017-01-19 05:01 | NUR ---
Significant Event: Alert at times, responds to voice. Very drowsy. Pain in back, gave 2 tabs of extra strength tylenol. BS 265, treated with 6 units insulin. Chest tubes L) 160out R) 100 out. Rt leg harvest sites weeping. Turn q 2 hours. SBP 110-120s. Follow up: Continue to monitor per plan of care.
[2017-01-19 07:30] LABS: ALBUMIN 2.9 gm/dL (3.5-5.0); ANION GAP 14.9 (10.0-19.0); CALCIUM 7.9 mg/dL (8.5-10.5); CREATININE 1.8 mg/dL (0.6-1.3); MAGNESIUM 2.6 mg/dL (1.3-2.6); PHOSPHORUS 2.8 mg/dL (2.5-4.9); POTASSIUM 3.9 mMol/L (3.7-5.1)
--- NOTE | 2017-01-19 12:23 | NUR ---
Introduced self to patient and . Explained that I would be covering as they child care teacher since Chio is out. They verbalized understanding. We discussed discahrge plans. We discuss the option of a skilled stay. They would like a referral sent to the [facility]. I called the [facility] and the B coordinator is out today. Will touch base with her in the morning. Will continue to follow.
--- NOTE | 2017-01-19 18:31 | NUR ---
Significant Event:Patient was sleepy this am, but has throughout day became more alert. Responds approp with nodding head and short answers. Got 20 mEq KCl PO and started on Coreg, Musinex and Meropenem. Will start Levimer tonight. Had low grade temp at 1500-99.2. Remains on room air. [id number], 1100-200, and at 1700-227. Mostly incont of urine. Follow up:Post CABG
--- NOTE | 2017-01-20 05:08 | NUR ---
Pt alert. As the night went on he became more responsive. answers yes/no questions approrpriately. VSS on ra. This am with low grade temp of 99. q2 turn. bottom red but blanchable. Lchest tube with 250 out, r chest tube with 200 out. wound vac to sternum. Very edematus all over. R knee harvest site weepy. generalized bruising. IV LFA SL minus abx. Need sputum culture. Incontinent b/b Plan: con't post cabg cares
[2017-01-20 05:35] LABS: HEMATOCRIT 31.2 % (33.0-50.0); HEMOGLOBIN 9.8 g/dL (11.0-16.0); MCH 31.5 pg (27.0-34.0); MCHC 31.4 gm/dL (32.0-36.5); MCV 100.3 fl (83.0-98.0); MPV 10.8 fl (9.4-12.4); RBC 3.11 M/uL (3.50-5.50); RDW-CV 16.4 % (11.9-14.6); WBC 9.2 K/uL (4.0-11.0)
[2017-01-20 05:37] LABS: PLATELET COUNT 262 K/uL (150-450)
[2017-01-20 05:56] LABS: ALBUMIN 2.8 gm/dL (3.5-5.0); ANION GAP 13.7 (10.0-19.0); CALCIUM 7.8 mg/dL (8.5-10.5); CREATININE 1.5 mg/dL (0.6-1.3); MAGNESIUM 2.6 mg/dL (1.3-2.6); PHOSPHORUS 2.5 mg/dL (2.5-4.9); POTASSIUM 4.7 mMol/L (3.7-5.1)
[2017-01-20 06:42] LABS: ABSOLUTE NEUTROPHIL CT (ANC) 6.7 K/uL (1.4-9.0); BANDED NEUTROPHIL # 0.8 K/uL (0.0-0.1); BANDED NEUTROPHILS % 9 %; LYMPHOCYTE # 1.5 K/uL (0.8-4.0); LYMPHOCYTE % 16 %; MONOCYTE # 0.7 K/uL (0.0-1.0); SEGMENTED NEUTROPHIL # 5.9 K/uL (1.4-9.0); SEGMENTED NEUTROPHIL % 64 %
--- NOTE | 2017-01-20 09:29 | NUR ---
A - NUTRITION F/U. GLU 177, BUN/NATURE PHOTOGRAPHER 45/1.5, ALB 2.8. PT W/ 1+ EDEMA T/O. WOUND VAC TO STERNUM. DIET: DIABETIC W/ 2000 ML FLUID RESTRICTION. INTAKE VARIES FROM BITES TO 75-100%. GLUCERNA OFFERED TID. D - INADEQUATE ORAL INTAKE R/T DECREASED APPETITE AEB INTAKE RECORD. I - GOAL: 50% OR BETTER INTAKE BY NEXT REVIEW. M/E - ENCOUAGE MEAL AND SUPPLEMENT INTAKE.
--- NOTE | 2017-01-20 11:49 | NUR ---
Called and spoke with Maribel SWB coordinator at [facility] about SWB referral. Faxed referral information.
--- NOTE | 2017-01-20 19:32 | NUR ---
Significant Event: PT A/O X SELF AND PLACE THIS AM, VSS, PT UP WITH ASSIST X 2 AND WALKER - UP TO CHAIR. PT WORK WITH THERAPY. UP TO CHAIR MOST OF AFTERNOON. MULTIPLE INCONT VOIDS - MARGY CARE. Q2 TURN/REPOSISION. WOUND VAC TO STERNUM D/C, REINFORCED BILAT CT DRESSING. INCREASED APPITITE THROUGH OUT TOD. PT NAP AFTERNOON, AND SIG. PERK UP FOR SUPPER. ENCOURAGE PT TO WORK WITH I.S. - FAIR TO POOR. FAMILY AT BEDSIDE OFF/ON THIS TOD. CALL LIGHT AND PERSONAL ITEMS IN REACH, QUESTIONS/CONCERNS ADDRESSED THIS TOD. Follow up: ENCOURAGE ACTIVITY TOLERATE, ENCOURAGE I.S., CONTINUE TO MONITER, CONTINUE PER PLAN OF CARE
--- NOTE | 2017-01-21 04:16 | NUR ---
pt more alert tonight than last night. VSS on RA, afebrile. q2 turn-large to x-large incontinent every time with turn. small soft bm x1. no c/o pain. R chest tube with 50 out, L chest tube 110 out. 3am blood sugar 167 Plan: con't post cabg cares
--- NOTE | 2017-01-21 15:29 | NUR ---
14:09- ST went to see Pt. Pt was too tired for tx. Pt's explained that he just finished back to back therapies and to come back tomorrow, so he can rest. Chart noted.
--- NOTE | 2017-01-21 19:04 | NUR ---
Significant Event: PT A/O X3, VSS, PT UP TO CHAIR AND AMBULATE IN ROOM THIS TOD W/ PT/OT. PT TOLERATE FAIR. INCREASE APPITITE. PT RESTING THIS AFTERNOON - AND ST NOT ABLE TO SEE. CHANGE CT DRESSING BILAT. FAMILY/FRIENDS VISIT OFF/ON THIS TOD. CALL LIGHT AND PERSONAL ITEMS IN REACH, QUESTIONS/CONCERNS ADDRESSED THIS TOD. Follow up: ENCOURAGE ACTIVITY CESAR, ENCOURAGE I.S. CONTINUE TO MONITER, CONTINUE PER PLAN OF CARE
[2017-01-22 04:42] LABS: HEMATOCRIT 34.2 % (33.0-50.0); HEMOGLOBIN 10.7 g/dL (11.0-16.0)
--- NOTE | 2017-01-22 04:56 | NUR ---
pt more alert tonight again. vss on ra, afebrile. q2 turn. L-R. only incontinent x1 when urinal spilled/he moved. [address] out in [address] ct total of 120 between the 2. dressing cdi. no c/o pain- no prns given. plan: con't post cabg cares
[2017-01-22 05:00] LABS: ALBUMIN 2.6 gm/dL (3.5-5.0); ANION GAP 12.3 (10.0-19.0); CALCIUM 7.9 mg/dL (8.5-10.5); CREATININE 1.4 mg/dL (0.6-1.3); MAGNESIUM 2.3 mg/dL (1.3-2.6); PHOSPHORUS 3.4 mg/dL (2.5-4.9); POTASSIUM 4.3 mMol/L (3.7-5.1)
--- NOTE | 2017-01-22 14:02 | NUR ---
Significant Event: PT A/O X3, VSS, PT UP WITH ASSIST X2 TO CHAIR AND BSC. TOLERATE DIET. CT DRESSING CHANGED BILAT. FRIENDS/FAMILY AT BEDSIDE OFF/ON THIS TOD. THERAPY WORK W/ PT. CALL LIGHT AND PERSONAL ITEMS IN REACH, QUESTIONS/CONCERNS ADDRESSED THIS TOD. Follow up: ENCOURAGE ACTIVITY TOLERATE, ENCOURAGE I.S., CONTINUE TO MONITER, CONTINUE PER PLAN OF CARE.
--- NOTE | 2017-01-23 04:30 | NUR ---
pt more alert tonight. slept majority of night. vss on ra, afebrile. con't to attempt to void in urinal- doesn't know he is going majority of time. no bm this shift. no prns given. bilat ct with 50 out in each Plan: con't post cabg cares.
--- NOTE | 2017-01-23 15:01 | NUR ---
Significant Event: PT A/O X3, VSS, THERAPY WORK W/ PT, UP TO CHAIR/BSC, AMBULATE IN ROOM FEW STEPS. REPO Q2 AND PRN, SHIFT WEIGHT IN CHAIR W/ PILLOW. BOTTOM PINK/RED - BLANCHABLE, SMALL DIME SIZE OPEN, BARRIER CREAM APPLIED. CHEST TUBE D/C BY LEIGHTON. OK FOR NO IV. AT BEDSIDE OFF/ON THIS TOD. CALL LIGHT AND PERSONAL ITEMS IN REACH. QUESTIONS/CONCERNS ADDRESSED THIS TOD. Follow up: TURN REPO Q2 AND PRN, ENCOURAGE ACTIVITY TOLERATE, CASE MGT TO WORK ON PLACEMENT FOR REHAB, WORKING TOWARDS D/C.
[2017-01-24 03:53] LABS: BASOPHIL # 0.1 K/uL (0.0-0.2); BASOPHIL % 0.7 %; EOSINOPHIL # 0.3 K/uL (0.0-0.5); EOSINOPHIL % 3.3 %; HEMATOCRIT 34.8 % (33.0-50.0); HEMOGLOBIN 10.6 g/dL (11.0-16.0); IMMATURE GRANULOCYTE # 0.1 K/uL (0.0-0.3); IMMATURE GRANULOCYTE % 1.4 %; LYMPHOCYTE # 1.2 K/uL (0.8-4.0); LYMPHOCYTE % 12.6 %; MCH 31.3 pg (27.0-34.0); MCHC 30.5 gm/dL (32.0-36.5); MCV 102.7 fl (83.0-98.0); MONOCYTE # 1.2 K/uL (0.0-1.0); MONOCYTE % 12.1 %; MPV 9.9 fl (9.4-12.4); NEUTROPHIL # (ANC) 6.7 K/uL (1.4-9.0); NEUTROPHIL % 69.9 %; NRBC % 0.6 /100WBC (0-0.00); PLATELET COUNT 348 K/uL (150-450); RBC 3.39 M/uL (3.50-5.50); RDW-CV 18.6 % (11.9-14.6); WBC 9.5 K/uL (4.0-11.0)
[2017-01-24 04:14] LABS: ALBUMIN 2.5 gm/dL (3.5-5.0); ANION GAP 12.4 (10.0-19.0); CALCIUM 7.8 mg/dL (8.5-10.5); CREATININE 1.4 mg/dL (0.6-1.3); MAGNESIUM 2.3 mg/dL (1.3-2.6); PHOSPHORUS 2.7 mg/dL (2.5-4.9); POTASSIUM 4.4 mMol/L (3.7-5.1)
--- NOTE | 2017-01-24 04:48 | NUR ---
Significant Event: Patient is alert/oriented x3, forgetful at times. Vital signs stable. Continues on room air. Denies any pain. Voiding adequately per urinal. Compliant with sternal precautions. Repositioned q.2hr in bed. Follow up: Continue to monitor per plan of care.
--- NOTE | 2017-01-24 12:44 | NUR ---
Faxed updated referral information to Maribel at [facility]. Waitin gto hear back as to when they can accept. Update patient and .
--- NOTE | 2017-01-24 16:16 | NUR ---
Significant Event: PT A/O X3, VSS, PT UP W/ ASST X 2 W/ WALKER. PT WORK WITH THERAPIES. SPEECH SUG MODIFIED CALL LIGHT - BULB, ORDER/REQUEST SENT. PT UP TO BATHROOM, THEN PT UP TO CHIAR MOST OF SHIFT. ENCOURAGE PT TO FEED SELF, OFFER SOME ASSISTANCE. CHANGE CT DRESSING SITES. Q2 REPOSISTION - PT REFUSED SOME. CALL LIGHT AND PERSONAL ITEMS IN REACH. QUESTIONS/CONCERNS ADDRESSED. Follow up: ENCOURAGE ACTIVITY TOLERATE, ENCOURAGE ADLS, POSSIBLE D/C TOMORROW OR WED. CONTINUE TO MONITER, CONTINUE PER PLAN OF CARE.
--- NOTE | 2017-01-24 17:47 | NUR ---
Received a call from Maribel at [facility]. They can accept patient for admission on Tuesday. Esther Bernal APRn has called Doc to Doc report to Dr Nguyen already. Called and updated patients nurse Yasmeen. She states that patient and Dr Villarreal want patient to transfer by ambulance. I called and set up ambulance transfer with Rose with EMS for 10am. Will plan for transfer 01/25 at 10am.
[2017-01-24 23:46] LABS: PCO2 33 mmHg (35-45); PO2 61 mmHg (80-90)
[2017-01-24 23:47] LABS: BICARBONATE 22.4 mmol/L (18.0-23.0)
--- NOTE | 2017-01-25 04:39 | NUR ---
Significant Event: Patient was intially alert/oriented x3 up until around 2300. He was in the recliner and chair alarm went off. Patient was found slumped over and had been incontinent of stool and urine, as it was on the floor beneath him. Patient was difficult to arouse at this time and would not open his eyes. He did respond to continued physical stimuli but would close his eyes immediately afterwards. He required 3 person assist to boost him up in the recliner in order to put his gait belt on to assist him back to bed. Patient continued to be difficult to arouse and required frequent verbal cues and reinforcement in order to transfer. Charge nurse was notified and Dr. Appiah was notified. STAT ABG's ordered, CT of head without contrast, and ammonia level ordered. All were unremarkable. Dr. Disla also asked to assess patient. Patient continued to be very lethargic but was now answering questions, albeit slow to respond. Vital signs were stable throughout the night. He was put on 1L O2 due to low PaO2 on ABG's. No narcotics were given prior to this and his blood glucose was 213 during his unresponsive event. Dr. Disla ordered a prolactin level to be added to blood drawn from that episode and it was normal. Dr. Disla stated that patient's lethargy might be secondary to Lexapro, since he was just started on it yesterday and did receive his first dose yesterday evening around 1830. Dr. Disla said he would discuss attempting to switch him to another antidepressant with Dr. Villarreal in the morning. Patient is now completely incontinent (before he used urinal appropriately) and continues to be lethargic but does answer questions and follows some commands. Continuing to reposition q.2hr. Follow up: Dismissal to [facility] cancelled for today. Continue to monitor patient's mental status.
[2017-01-25 05:53] LABS: BASOPHIL # 0.1 K/uL (0.0-0.2); BASOPHIL % 0.6 %; EOSINOPHIL # 0.3 K/uL (0.0-0.5); EOSINOPHIL % 2.8 %; HEMATOCRIT 34.2 % (33.0-50.0); HEMOGLOBIN 10.6 g/dL (11.0-16.0); IMMATURE GRANULOCYTE # 0.1 K/uL (0.0-0.3); LYMPHOCYTE # 1.1 K/uL (0.8-4.0); LYMPHOCYTE % 10.9 %; MCH 31.5 pg (27.0-34.0); MCV 101.8 fl (83.0-98.0); MONOCYTE # 1.1 K/uL (0.0-1.0); MONOCYTE % 11.3 %; MPV 9.7 fl (9.4-12.4); NEUTROPHIL # (ANC) 7.1 K/uL (1.4-9.0); NEUTROPHIL % 73.4 %; NRBC % 0.5 /100WBC (0-0.00); PLATELET COUNT 345 K/uL (150-450); RBC 3.36 M/uL (3.50-5.50); RDW-CV 18.6 % (11.9-14.6); WBC 9.6 K/uL (4.0-11.0)
[2017-01-25 06:20] LABS: ALBUMIN 2.5 gm/dL (3.5-5.0); ANION GAP 13.2 (10.0-19.0); CREATININE 1.2 mg/dL (0.6-1.3); POTASSIUM 4.2 mMol/L (3.7-5.1); TOTAL PROTEIN 5.8 g/dL (6.0-8.4)
[2017-01-25 06:21] LABS: TOTAL BILIRUBIN 1.4 mg/dL (0.0-1.5)
--- NOTE | 2017-01-25 09:30 | NUR ---
Called and left message for Maribel BISHOP coordinator that trnasfer for today has been placed on hold. Will update as needed.
--- NOTE | 2017-01-25 11:41 | NUR ---
A-NUTRITION F/U S/P CABG. PLAN TO D/C TO [facility] TODAY, BUT CANCELLED D/T EPISODE OF LETHARGY LAST NIGHT. LABS: NA 137, K+ 4.2, GLU 134, BUN 29, SALES MANAGER [place] 1.2, ALB 2.5 MEDS: LEXAPRO (D/C), BUMEX STARTED, LEVEMIR (ADJ) DIET RX: CONSISTENT CARB/SOFT DIET W/2000 ML FLUID RESTRICTION. PO INTAKE HAS IMPROVED TO 50-100%, SINCE LAST F/U. TAKING 50-100% OF GLUCERNA TID W/MEALS. EST NUTR NEEDS: 2312-6640 KCALS AND 74-89 GM PROTEIN D-AT NUTRITION RISK W/INCREASED PROTEIN NEEDS R/T HEALING AEB RECENT CABG I-CONTINUE W/GLUCERNA TID M/E-GOAL: PO INTAKE >/=50% FOR DURATION OF ADMIT 1)F/U PO INTAKE, SUPPLEMENT, AND POC IN 3-5 DAYS 2)RECOMMEND CONTINUING SUPPLEMENT OF FACILITY'S CHOICE UPON D/C TO [facility]. 3)ASSIST NEEDED
--- NOTE | 2017-01-25 15:00 | NUR ---
Significant Event: Drowsy today, responds to voice. Answers questions appropriately. at bedside. Up with 1-2 assist, needs reminding of sternal precautions. Incontinent of bladder and bowel today - states that his prevalite likely needs to be restarted to help with bowels. Nauseous this AM. MRI ordered for MS changes. Follow up:
--- NOTE | 2017-01-26 05:03 | NUR ---
Significant Event: A/O, patient alert and oriented, forgetful of time of day, SBP 100-116, HR 80-90s, afebrile, no c/o pain, repositioned througout night, pleasant and cooperative, continent of b&b Follow up: neurology to see today
--- NOTE | 2017-01-26 12:23 | NUR ---
Called and updated Maribel at [facility] that discharge will not be today. Will keep her updated.
--- NOTE | 2017-01-26 13:35 | NUR ---
Introduced self and purpose of heart healthy education and care transitions. Calendar given, information reviewed, verbalized understanding.
--- NOTE | 2017-01-26 14:33 | NUR ---
Significant Event: A/O. VSS on RA. Denies pain, tylenol given this AM for anticipated aches. Up with 1-2 assist and walker. Appetite much better today. at bedside. Neurology to see this afternoon. Follow up: likely dismissal to [facility] tomorrow pending neurology recs
--- NOTE | 2017-01-26 17:23 | NUR ---
Received a call from Aletha LOPEZ that patient has been cleared from Neuro to transfer to [facility] in AM. Called and faxed updated information to Maribel at [facility]. Called and spoke with Jennifre with EMS and set up transfer time for 10am.
--- NOTE | 2017-01-27 04:53 | NUR ---
Significant Event: A/O, still somewhat forgetful, VSS on RA, no pain/discomfort, patient surgical incisions all open to air and closed, healing well, hs accucheck 220, patient slept well in recliner through night Follow up: dismiss to [facility] swing bed at 1000
--- NOTE | 2017-01-27 08:30 | NUR ---
Called and spoke with Maribel at [facility] to update her that patient is ready for transfer. She will call me bck after speaking with Dr Nguyen.
--- NOTE | 2017-01-27 09:30 | NUR ---
Received a call from Maribel at [facility] that they will accept patient today. I called and update Jessica with EMS. She set up transport for 10:30 am with [facility]. Called and updated Sara LOPEZ of transport time. Orders faxed.
--- NOTE | 2017-01-27 09:30 | NUR ---
Patient alert/oriented x 3, but forgetful at times. Vitals stable. Room air. Denies pain. Voiding adequate amounts. Incision to right neck approximated. Sternal incision approximated. Chest tube sites to mid upper abdomen have small amount of bloody drainage. [place] sites to right groin, knee and ankle, sutured, edges approximated. Right leg ecchymotic. Incision to left chest sutured, edges approximated. 1-2 assist with gait belt and walker; full weight bearing; STRICT sternal precautions until 02/17/17. Heart hugger on. AM accucheck was 99, no coverage needed; gave 6 units of Novolog for carb count at breakfast. Patient able to take pills 2-3 at a time without difficulty. Patient did not take 'po' bumex this AM due to dismissal and traveling to swing bed--he will need to take once he arrives at the swing bed.
== END 2017-01-27 10:17 | disposition swing bed (61) | DRG 233 ==
LOC: EDSTATUS 14:00 → GPCU 14:00 → GICU 14:28 → GPCU 14:28 → GICU 01-13 06:13 → GPCU 01-17 20:25
PROVIDERS: Internal Medicine; Student in an Organized Health Care Education/Training Program; Surgery Vascular Surgery; Thoracic Surgery (Cardiothoracic Vascular Surgery); ADMIT Internal Medicine Interventional Cardiology
PROC: B2151ZZ Fluoroscopy of Left Heart using Low Osmolar Contrast (ICD-10-PCS; 2017-01-11)
PROC: B2131ZZ Fluoroscopy of Multiple Coronary Artery Bypass Grafts using Low Osmolar Contrast (ICD-10-PCS; 2017-01-11)
PROC: B2111ZZ Fluoroscopy of Multiple Coronary Arteries using Low Osmolar Contrast (ICD-10-PCS; 2017-01-11)
PROC: 4A023N7 Measurement of Cardiac Sampling and Pressure, Left Heart, Percutaneous Approach (ICD-10-PCS; 2017-01-11)
PROC: 03UK0KZ Supplement Right Internal Carotid Artery with Nonautologous Tissue Substitute, Open Approach (ICD-10-PCS; principal; 2017-01-13)
PROC: 06BP0ZZ Excision of Right Saphenous Vein, Open Approach (ICD-10-PCS; principal; 2017-01-13)
PROC: B24BZZ4 Ultrasonography of Heart with Aorta, Transesophageal (ICD-10-PCS; principal; 2017-01-13)
PROC: 0W9930Z Drainage of Right Pleural Cavity with Drainage Device, Percutaneous Approach (ICD-10-PCS; principal; 2017-01-13)
PROC: 02HQ32Z Insertion of Monitoring Device into Right Pulmonary Artery, Percutaneous Approach (ICD-10-PCS; principal; 2017-01-13)
PROC: 021309W Bypass Coronary Artery, Four or More Arteries from Aorta with Autologous Venous Tissue, Open Approach (ICD-10-PCS; principal; 2017-01-13)
PROC: 03CK0ZZ Extirpation of Matter from Right Internal Carotid Artery, Open Approach (ICD-10-PCS; principal; 2017-01-13)
PROC: 03HC33Z Insertion of Infusion Device into Left Radial Artery, Percutaneous Approach (ICD-10-PCS; principal; 2017-01-13)
PROC: 5A1221Z Performance of Cardiac Output, Continuous (ICD-10-PCS; principal; 2017-01-13)
PROC: 0W9B30Z Drainage of Left Pleural Cavity with Drainage Device, Percutaneous Approach (ICD-10-PCS; principal; 2017-01-13)
PROC: 0WJC0ZZ Inspection of Mediastinum, Open Approach (ICD-10-PCS; 2017-01-13)
PROC: 5A02210 Assistance with Cardiac Output using Balloon Pump, Continuous (ICD-10-PCS; 2017-01-13)
PROC: 0WCD0ZZ Extirpation of Matter from Pericardial Cavity, Open Approach (ICD-10-PCS; 2017-01-13)
PROC: 30233M1 Transfusion of Nonautologous Plasma Cryoprecipitate into Peripheral Vein, Percutaneous Approach (ICD-10-PCS; 2017-01-13)
PROC: 30233R1 Transfusion of Nonautologous Platelets into Peripheral Vein, Percutaneous Approach (ICD-10-PCS; 2017-01-13)
PROC: 30233N1 Transfusion of Nonautologous Red Blood Cells into Peripheral Vein, Percutaneous Approach (ICD-10-PCS; 2017-01-13)
PROC: 30233K1 Transfusion of Nonautologous Frozen Plasma into Peripheral Vein, Percutaneous Approach (ICD-10-PCS; 2017-01-13)
PROC: 02PY3DZ Removal of Intraluminal Device from Great Vessel, Percutaneous Approach (ICD-10-PCS; 2017-01-14)
DX: I21.4 Non-ST elevation (NSTEMI) myocardial infarction (principal); G93.40 Encephalopathy, unspecified; I63.9 Cerebral infarction, unspecified; J96.01 Acute respiratory failure with hypoxia; N17.9 Acute kidney failure, unspecified; I31.4 Cardiac tamponade; R57.0 Cardiogenic shock; N18.3 Chronic kidney disease, stage 3 (moderate); D68.9 Coagulation defect, unspecified; I50.41 Acute combined systolic (congestive) and diastolic (congestive) heart failure; J90 Pleural effusion, not elsewhere classified; I97.611 Postprocedural hemorrhage of a circulatory system organ or structure following cardiac bypass; I42.9 Cardiomyopathy, unspecified; T82.898A Other specified complication of vascular prosthetic devices, implants and grafts, initial encounter; I75.022 Atheroembolism of left lower extremity; I13.0 Hypertensive heart and chronic kidney disease with heart failure and stage 1 through stage 4 chronic kidney disease, or unspecified chronic kidney disease; D62 Acute posthemorrhagic anemia; E78.2 Mixed hyperlipidemia; E11.42 Type 2 diabetes mellitus with diabetic polyneuropathy; I25.119 Atherosclerotic heart disease of native coronary artery with unspecified angina pectoris; I25.84 Coronary atherosclerosis due to calcified coronary lesion; E08.22 Diabetes mellitus due to underlying condition with diabetic chronic kidney disease; I65.21 Occlusion and stenosis of right carotid artery; Z79.84 Long term (current) use of oral hypoglycemic drugs; I25.2 Old myocardial infarction; Z79.82 Long term (current) use of aspirin; M19.90 Unspecified osteoarthritis, unspecified site; Z89.022 Acquired absence of left finger(s); Z89.422 Acquired absence of other left toe(s); J67.0 Farmer's lung; Y83.2 Surgical operation with anastomosis, bypass or graft as the cause of abnormal reaction of the patient, or of later complication, without mention of misadventure at the time of the procedure; Y71.3 Surgical instruments, materials and cardiovascular devices (including sutures) associated with adverse incidents; I49.9 Cardiac arrhythmia, unspecified; R19.7 Diarrhea, unspecified; D72.829 Elevated white blood cell count, unspecified; D69.6 Thrombocytopenia, unspecified; R53.1 Weakness
CPT/HCPCS: C1760; J0171; J0282; J0583; J0690; J0885; J1250; J1644; J1650; J1956; J2150; J2185; J2250; J2270; J2370; J2440; J2720; J3010; J3475; J3480; J3490; J7030; J7040; J7050; J7060; J7121; P9012; P9016; P9017; P9035; P9045; P9047